=== PATIENT | female | born 1990 | race Native Hawaiian/Other Pacific Islander ===

== ENCOUNTER 2016-12-30 09:21 | Inpatient (IN) | payer BC, MEDICAID ==
[2016-12-30 09:32] VITALS: BMI 26.4
[2016-12-30] MEDS ORDERED: Sodium Chloride 0.9% 1,000 ML IV STA ×2 (09:48→13:14)
--- NOTE | 2016-12-30 10:00 | ED PDOC ---
HPI: Psych/Substance Abuse Time Seen by Provider: 12/30/16 09:26 Chief Complaint (Nursing): Psychiatric Evaluation Chief Complaint (Provider): psychiatric evaluation History Per: Patient History/Exam Limitations: no limitations Onset/Duration Of Symptoms: Hrs (x 2) Additional Complaint(s): Katrin Barrios is a 26 year old female, with a recent diagnosis of bipolar disorder, who presents to the ED accompanied by her mother for evaluation after a suicidal attempt 2 hours prior to arrival. Patient reports taking 15-20 sleeping pills at 08:00 and reports feeling sleepy. She denies any medical complaints or homicidal ideation. Recent Medications: Prozac, Vistral, Klonopin and bupropion xl PMD: Dr. Aguero Past Medical History Reviewed: Historical Data, Nursing Documentation, Vital Signs Vital Signs: Last Vital Signs Temp 98.2 F 12/30/16 09:31 Pulse 121 H 12/30/16 09:31 Resp 16 12/30/16 09:31 BP 139/107 H 12/30/16 09:31 Pulse Ox 99 12/30/16 09:31 - Medical History PMH: Anxiety, Bipolar Disorder, Depression Denies: Diabetes, Hepatitis, HIV, HTN, Seizures, Sexually Transmitted Disease - Family History Family History: States: Unknown Family Hx - Immunization History Hx Tetanus Toxoid Vaccination: Yes - Allergies Allergies/Adverse Reactions: Allergies Allergy/AdvReac Type Severity Reaction Status Date / Time latex Allergy RASH Verified 06/18/16 13:15 Latex, Natural Rubber Allergy RASH Verified 06/18/16 13:15 Review of Systems ROS Statement: Except As Marked, All Systems Reviewed And Found Negative Constitutional: Positive for: Other (sleepy) Psych: Positive for: Suicidal ideation. Negative for: Other (homicidal ideation ) Physical Exam - Reviewed Nursing Documentation Reviewed: Yes Vital Signs Reviewed: Yes - Physical Exam Appears: Positive for: Non-toxic, No Acute Distress (appears tearful ) Head Exam: Positive for: ATRAUMATIC, NORMAL INSPECTION, NORMOCEPHALIC Skin: Positive for: Normal Color, Warm, DRY Eye Exam: Positive for: EOMI, Normal appearance, PERRL ENT: Positive for: Normal ENT Inspection Neck: Positive for: Normal, Painless ROM Cardiovascular/Chest: Positive for: Regular Rate, Rhythm Respiratory: Positive for: CNT, Normal Breath Sounds Gastrointestinal/Abdominal: Positive for: Normal Exam, Bowel Sounds, Soft Back: Positive for: Normal Inspection Extremity: Positive for: Normal ROM Neurologic/Psych: Positive for: Alert, Oriented - Laboratory Results Result Diagrams: 12/30/16 09:55 12/30/16 09:55 - ECG O2 Sat by Pulse Oximetry: 99 (RA) Pulse Ox Interpretation: Normal - Physician Consult Information Physician Contacted: Manuel Sanches Outcome Of Conversation: Admit to ICU. - Critical Care Total Time (In Min): 30 Medical Decision Making Medical Decision Making: Initial Plan: * EKG * acetaminophen * alcohol serum * labs * urine drug screen * salicylate * urine dipstick * urine * CXR * IV NS 1,000 ml at 1,000 ml/hr * 1:1 observation * urinalysis * reevaluation 10:05 Case discussed with Kota @ Poison Control, charcoal could be considered but caution for risk of vomiting, aspiration. Watch for anticholinergic effects, hallucinations, seizures. Can administer IVF, BZD for agitation or toxicity, EKG, load with Acetadote. Scribe Attestation: Documented by Jodi Flynn, acting as a scribe for Jodi Dennis MD. Provider Scribe Attestation: All medical record entries made by the Scribe were at my direction and personally dictated by me. I have reviewed the chart and agree that the record accurately reflects my personal performance of the history, physical exam, medical decision making, and the department course for this patient. I have also personally directed, reviewed, and agree with the discharge instructions and disposition. ED OBSERVATION Date of observation admission: 12/30/16 Time of observation admission: 11:00 - Observation admission statement Patient is being placed in observation because:: will be receiving repeat blood work Disposition - Clinical Impression Clinical Impression: Tylenol overdose, Diphenhydramine overdose - Patient ED Disposition Is Patient to be Admitted: Yes - Disposition Disposition Time: 13:49 Condition: GUARDED - Pt Status Changed To: Hospital Disposition Of: Inpatient - Admit Certification Admit to Inpatient:: After my assessment, the patient will require hospitalization for at least two midnights. This is because of the severity of symptoms shown, intensity of services needed, and/or the medical risk in this patient being treated as an outpatient. - POA Present On Arrival: None
[2016-12-30] MEDS ORDERED: ACETYLCYSTEINE IVPB STA ×3 (10:06→13:50)
[2016-12-30] MEDS ORDERED: DEXTROSE 5% IVPB STA ×3 (10:06→13:50)
[2016-12-30] MEDS ORDERED: WATER IVPB STA ×3 (10:06→13:50)
[2016-12-30 10:14] LABS: BASO % 0.8 % (0.0-2.0); EOS # 0.1 K/uL (0.0-0.7); HEMATOCRIT 41.3 % (34.0-47.0); LYMPH # 1.6 K/uL (1.0-4.3); LYMPH % 39.2 % (20.0-40.0); MEAN CORPUSCULAR HEMOGLOBIN 29.7 pg (27.0-31.0); MEAN CORPUSCULAR HGB CONC 33.3 g/dL (33.0-37.0); MEAN PLATELET VOLUME 7.8 fl (7.2-11.7); MONO # 0.4 K/uL (0.0-0.8); MONO % 10.2 % (0.0-10.0); NEUT # 1.9 K/uL (1.8-7.0); NEUT % 46.8 % (50.0-75.0); NRBC % 0.1 % (0.0-0.0); RED CELL DISTRIBUTION WIDTH 13.4 % (11.5-14.5); WHITE BLOOD COUNT 4.1 K/uL (4.8-10.8)
[2016-12-30 10:21] LABS: RBC URINE 4 /hpf (0-3); URINE BILIRUBIN NEGATIVE (NEGATIVE); URINE BLOOD NEGATIVE (NEGATIVE); URINE COLOR YELLOW (YELLOW); URINE GLUCOSE (UA) NEG (Normal); URINE KETONE NEGATIVE (NEGATIVE); URINE LEUKOCYTE ESTERASE NEG Leu/uL (Negative); URINE PROTEIN 30 mg/dL (NEGATIVE); URINE UROBILINOGEN 0.2-1.0 mg/dL (0.2-1.0); WBC URINE 2 /hpf (0-5)
[2016-12-30 10:34] LABS: ALB/GLOB RATIO 1.5 (1.0-2.1); ALCOHOL SERUM < 10 mg/dl (0-10); ALKALINE PHOSPHATASE 62 U/L (38-126); ALT/SGPT 34 U/L (9-52); AST/SGOT 28 U/L (14-36); BILIRUBIN,TOTAL 0.5 mg/dl (0.2-1.3); BLOOD UREA NITROGEN 8 mg/dl (7-17); CALCIUM 9.3 mg/dL (8.4-10.2); CARBON DIOXIDE 20 mmol/L (22-30); CHLORIDE 105 mmol/L (98-107); GFR AFRICAN-AMERICAN > 60; GLUCOSE,RANDOM 93 mg/dL (65-105); POTASSIUM 4.6 MMOL/L (3.6-5.0); SODIUM 137 mmol/l (132-148)
[2016-12-30 10:42] LABS: PARTIAL THROMBOPLASTIN TIME 36.9 Seconds (25.6-37.1)
--- NOTE | 2016-12-30 12:26 | RAD ---
PROCEDURE: CHEST RADIOGRAPH, 1 VIEW HISTORY: OD COMPARISON: None available. FINDINGS: LUNGS: Clear. PLEURA: No pneumothorax or pleural fluid seen. CARDIOVASCULAR: Normal. OSSEOUS STRUCTURES: No significant abnormalities. VISUALIZED UPPER ABDOMEN: Normal. OTHER FINDINGS: None. IMPRESSION: No active disease.
--- NOTE | 2016-12-30 14:00 | CP.PCM.HP ---
History of Present Illness - History of Present Illness History of Present Illness: 26 yr old F with PMHx including Bipolar depression, Panic disorder and substance abuse (cannabis) brought in to ER by her mother with complaint of suicide attempt with ingestion of 15-20 pills (Acetaminophen 500mg/ Diphenydramine 25mg) at 8am this morning. Denies ingestion of alcohol. Last ingestion of cannabis was last night. Patient reports she feels tired and had palpitations. Denies nausea, vomiting, chest pain, weakness or dizziness. Patient reports she took the pills at 8am this morning because she woke up and "felt like shit, I didn't feel good at all, I just wanted to , I wished I was "; "I've always been a depressed person and I am tired of dealing with it, I contemplated cutting myself or jumping out the window but decided to take many pills and go to bed instead. I am overwhelmed at work and have gained weight on my medication, it has been addressed with changes in medication but now I am depressed about my weight as well". After ingesting the pills, patient told her mom to bring her to the hospital because she was feeling palpitations and was scared she was going to have a heart attack. States stopped taking her Zyprexa 3 weeks ago, took 1 tab last night because her mother begged her to. At this time denies suicidal or homicidal ideation, denies visual or audio hallucinations. [place] some nausea and 1 episode of no bilious/non bloody emesis after treatment started in ER, this has now subsided. PMD: Dr. Barrera at [facility] (last clinic visit 06/30/16) Mental Health : Chel Magaña A.P.N. -psych nurse at [facility] ( last visit 12/13/16) Behavior Health Specialist: Libby Marie at [facility] (last visit 12/28/16) LMP: 12/19/16 ObGyn: (had TOP), sexually active with 1 male partner only (does not use birthcontrol or protection) PMHx: Bipolar depression, Panic disorder and substance abuse: cannabis (last time yesterday) and Etoh (last time in November) FMHx: unknown, patient is adopted SurgHx: left sinus procedure SocHx: smokes 1-2 cigarettes a day (has 9 pack yr smoking hx) , uses cannabis daily, denies other drugs, quit Etoh 1 month ago, lives with parents (feels safe and supported at home); 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 (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 but likes 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 job); reports good relationship with fiance of 11 yrs; denies emotional or physical abuse Meds: Prozac 20mg PO QHS, Zyprexa 7.5mg PO QHS, Wellbutrin XL 150mg PO QD, Klonopin 0.25mg PO Q12 PRN anxiety ED Course: placed on a 1:1 -EKG: sinus tachycardia -CXR: no active disease -VS: BP 139/107 mmHg, HR 121, RR 16, Temp 98.2 F, O2 sat 99% on room air - CBC wnl, CMP wnl , coags wnl, UA neg -Acetaminophen level: 91 -Utox: + Cannabinoids -ED tx: 2L NS bolus, loading dose N-acetylcysteine 8,030mg over 1hr, 2nd dose N- acetycysteine 2,680mg over 4 hrs, Pepcid 20mg IV once, Zofran 4mg IV x 2 Present on Admission - Present on Admission Any Indicators Present on Admission: No History of DVT/PE: No History of Uncontrolled Diabetes: No Urinary Catheter: No Decubitus Ulcer Present: No Review of Systems - Review of Systems All systems: reviewed and no additional remarkable complaints except (except for what is mentioned in the HPI) Past Patient History - Infectious Disease Hx of Infectious Diseases: None - Past Social History Smoking Status: Light Smoker < 10 Cigarettes Daily - CARDIAC Hx Hypertension: No - PULMONARY Hx Tuberculosis: No - NEUROLOGICAL Hx Seizures: No - HEMATOLOGICAL/ONCOLOGICAL Hx Human Immunodeficiency Virus (HIV): No - GENITOURINARY/GYNECOLOGICAL Hx Sexually Transmitted Disorders: No - PSYCHIATRIC Hx Anxiety: Yes Hx Bipolar Disorder: Yes Hx Depression: Yes - SURGICAL HISTORY Hx Surgeries: No - ANESTHESIA Hx Anesthesia: No Meds Allergies/Adverse Reactions: Allergies Allergy/AdvReac Type Severity Reaction Status Date / Time latex Allergy RASH Verified 06/18/16 13:15 Latex, Natural Rubber Allergy RASH Verified 12/30/16 14:18 Physical Exam - Constitutional Appears: Non-toxic, No Acute Distress - Head Exam Head Exam: ATRAUMATIC, NORMOCEPHALIC - Eye Exam Eye Exam: EOMI (mild upper and lower eyelid swelling bilaterally), PERRL - ENT Exam ENT Exam: Mucous Membranes Moist - Neck Exam Neck exam: Positive for: Full Rom. Negative for: Lymphadenopathy - Respiratory Exam Respiratory Exam: Clear to Auscultation Bilateral, NORMAL BREATHING PATTERN - Cardiovascular Exam Cardiovascular Exam: REGULAR RHYTHM, +S1, +S2 - GI/Abdominal Exam GI & Abdominal Exam: Normal Bowel Sounds, Soft (obese) - Extremities Exam Extremities exam: Positive for: full ROM. Negative for: calf tenderness, pedal edema - Back Exam Back exam: absent: CVA tenderness (L), CVA tenderness (R) - Neurological Exam Neurological exam: Alert, CN II-XII Intact, Oriented x3 - Psychiatric Exam Psychiatric exam: Depressed, Flat Affect - Skin Skin Exam: Dry, Intact, Normal Color, Warm Results - Vital Signs Recent Vital Signs: Last Vital Signs Temp 98.3 F 12/30/16 13:20 Pulse 97 H 12/30/16 13:20 Resp 15 12/30/16 13:20 BP 138/94 H 12/30/16 13:36 Pulse Ox 99 12/30/16 13:50 - Labs Result Diagrams: 12/30/16 09:55 12/30/16 09:55 Assessment & Plan - Assessment and Plan (Free Text) Assessment: 26 yr old F admitted for Acetaminophen toxicity and Diphenhydramine toxicity s/ p suicidal attempt. Patient has PMHx including Bipolar depression, Panic disorder and substance abuse (cannabis). In ED patient received initial and 2nd dose of N-acteylcysteine. Admitted to ICU for further management. Acetaminophen Toxicity/Diphenhydramine Toxicity -acute, improving -Acetaminophen level 91>22 -initial and 2nd dose of N-acteylcysteine in ED -Admit to ICU for further management and 3rd dose N-acetylcysteine -f/u labs and acetaminophen level in AM -psych consult appreciated : Dr. Alvarez -chris Q2 Suicide Attempt -patient on 1:1 -PMHx Bipolar Disorder/Depression/Panic disorder -denies SI/HI at the moment -resume home meds: Prozac 20mg PO QHS, Zyprexa 7.5mg PO QHS, Wellbutrin XL 150mg PO QD (NF, mom will bring in), Klonopin 0.25mg PO Q12 PRN anxiety -psych consult appreciated : Dr. Alvarez Substance abuse (Cannabis) -patient counseled on abstaining from cannabis use DVT/GI prophylaxis -Lovenox 40 mg SC QD -Famotidine 20mg PO QD - Date & Time Date: 12/31/16 Time: 14:15
[2016-12-30] MEDS ORDERED: ACETYLCYSTEINE IVPB ONE (18:00)
[2016-12-30] MEDS ORDERED: WATER IVPB ONE (18:00)
[2016-12-30] MEDS ORDERED: DEXTROSE 5% IVPB ONE (18:00)
--- NOTE | 2016-12-31 05:34 | CON ---
DATE: 12/30/2016 SUBJECTIVE: The patient in ICU bed. The patient is seen and examined at the bedside. This is a 26-year-old female, adopted by parents, who lives with her. The patient has history of anxiety, depression and bipolar disorder, has been on mood stabilizing medications. Reportedly, the patient has not been taking these medications for about a week. Reports that the patient has been on Prozac, Vistaril, Klonopin and Wellbutrin XL 150 mg once daily. Reportedly, she was not feeling well this morning and took 15 to 20 tablets to help her relax and sleep. As the patient was not feeling well, the patient was brought to emergency room by parents. In ER, the patient's vital signs were temperature 98.2, heart rate of 121, respiratory rate 16, oxygen saturation 99% on room air, blood pressure 139/107. She was noted to be alert and awake. She was able to follow commands appropriately. The patient denied any medical complaints or homicidal ideation. Lab examination was otherwise unremarkable. Chest x-ray showed no acute infiltrate as the Tylenol level was not elevated. Poison control was contacted and recommended to start on antidote. The patient is admitted to ICU for further observation and treatment of acetaminophen toxicity. REVIEW OF SYSTEMS: No fever, chills, cough, shortness of breath, chest pain, abdominal pain or diarrhea or dysuria. PAST MEDICAL HISTORY: Otherwise unremarkable. SURGICAL HISTORY: Negative. MEDICATIONS: Reviewed. ALLERGY: ALLERGIC TO LATEX AND WELL RUBBER. PHYSICAL EXAMINATION GENERAL: Young, well-built female, oriented to name, place and time, in no distress. VITAL SIGNS: Temperature is 98.3, heart rate 99, blood pressure 143/94, respiratory rate 18, oxygen saturation 100% on room air. Weight 118 pounds. HEENT: Examination of head, eyes, ears, nose and throat; pupils are reactive. Conjunctivae are pink. Sclerae are white. NECK: Supple. Trachea is center. CHEST: Bilateral breath sounds. Clear to auscultation. HEART: Rhythm regular. S1 and S2, normal intensity. No S3 or S4 gallop. No audible murmur. ABDOMEN: Bowel sounds present and soft. Liver and spleen are palpable. Bladder is not distended. EXTREMITIES: No clubbing, cyanosis or edema. No aberrations are noted. NEURO EXAMINATION: No cranial nerve deficit. No sensory or motor impairment. [place] coma scale equal to 15. LABORATORY DATA: As noted, toxicology screen, acetaminophen 91. Urine cannabinoid screen positive. Alcohol level less than 10. SMA-7; sodium 137, potassium 4.6, chloride 105, CO2 of 20, anion gap 17, blood urea nitrogen 8, AST 28, ALT 34, alkaline phosphatase 62, total protein 8, albumin 4.8. WBC 4.1, hemoglobin 13.8, hematocrit 41.3, platelet count 287, neutrophils 46.8, lymphocytes 39.2, monocytes 10.2. Chest x-ray, no acute infiltrate noted. IMPRESSION: 1. This is a 26-year-old female with history of bipolar disorder/anxiety, depression, admitted with intentional drug overdose, elevated acetaminophen level, on acetylcysteine at 125 mL per hour. 2. Anxiety, depression and bipolar disorder, to follow by psychiatrist. Continue DVT and GI prophylaxis. One-to-one observation. Keep head off bed 30 degrees up. Once the patient has no GI upset, we will start with regular diet as tolerated. Manuel Sanches MD
[2016-12-31 07:11] LABS: HEMATOCRIT 36.4 % (34.0-47.0); MEAN CELL VOLUME 89.2 fl (81.0-99.0); MEAN CORPUSCULAR HEMOGLOBIN 29.9 pg (27.0-31.0); MEAN CORPUSCULAR HGB CONC 33.6 g/dL (33.0-37.0); RED CELL DISTRIBUTION WIDTH 13.3 % (11.5-14.5); WHITE BLOOD COUNT 4.7 K/uL (4.8-10.8)
[2016-12-31 07:16] LABS: ALB/GLOB RATIO 1.4 (1.0-2.1); ALKALINE PHOSPHATASE 43 U/L (38-126); ALT/SGPT 29 U/L (9-52); AST/SGOT 24 U/L (14-36); BILIRUBIN,TOTAL 0.4 mg/dl (0.2-1.3); BLOOD UREA NITROGEN 5 mg/dl (7-17); CALCIUM 8.8 mg/dL (8.4-10.2); CARBON DIOXIDE 26 mmol/L (22-30); CHLORIDE 108 mmol/L (98-107); GFR AFRICAN-AMERICAN > 60; GLUCOSE,RANDOM 93 mg/dL (65-105); POTASSIUM 4.3 MMOL/L (3.6-5.0); SODIUM 140 mmol/l (132-148); TOTAL PROTEIN 6.6 G/DL (6.3-8.2)
[2016-12-31 08:32] LABS: PARTIAL THROMBOPLASTIN TIME 35.9 Seconds (25.6-37.1)
[2016-12-31] MEDS: Enoxaparin 40 mg Syringe SC SCH (08:52)
[2016-12-31] MEDS: Famotidine 40 MG/5 ML PO SCH (09:47)
--- NOTE | 2016-12-31 12:30 | CP.PCM.PN ---
Subjective - Date & Time of Evaluation Date of Evaluation: 12/31/16 Time of Evaluation: 09:40 - Subjective Subjective: Pt seen and examined at bedside, denies any palpitations today, sob, chest pain , states medically she feels ok. but still feels depressed but now regrets her suicide attempt. and currently denies wanting to kill herself. Objective - Vital Signs/Intake and Output Vital Signs (last 24 hours): Temp Pulse Resp BP Pulse Ox 98.4 F 88 15 114/72 100 12/31/16 08:00 12/31/16 08:00 12/31/16 08:00 12/31/16 08:00 12/31/16 08:00 Intake and Output: 12/31/16 12/31/16 06:59 18:59 Intake Total 700 125 Output Total 400 Balance 300 125 - Medications Medications: Current Medications Clonazepam (Klonopin) 0.25 mg PO Q12 PRN PRN Reason: Anxiety Enoxaparin Sodium (Lovenox) 40 mg SC DAILY [facility] PRN Reason: Protocol Last Admin: 12/31/16 08:52 Dose: 40 mg Famotidine (Pepcid) 20 mg PO DAILY [facility] Last Admin: 12/31/16 09:47 Dose: 20 mg Fluoxetine HCl (Prozac) 20 mg PO HS [facility] Last Admin: 12/30/16 22:01 Dose: 20 mg Home Med (Bupropion Xl [Wellbutrin Xl]) 150 mg PO DAILY [facility] Olanzapine (Zyprexa) 7.5 mg PO QPM [facility] Ondansetron HCl (Zofran Inj) 4 mg IVP Q6H PRN PRN Reason: Nausea/Vomiting - Labs Labs: 12/31/16 06:00 12/31/16 06:00 PT 13.0 Seconds (9.8-13.1) 12/31/16 06:00 INR 1.2 (0.9-1.2) 12/31/16 06:00 APTT 35.9 Seconds (25.6-37.1) 12/31/16 06:00 - Constitutional Appears: Non-toxic, No Acute Distress - Head Exam Head Exam: NORMOCEPHALIC - Eye Exam Eye Exam: EOMI, Normal appearance, PERRL Pupil Exam: NORMAL ACCOMODATION - ENT Exam ENT Exam: Mucous Membranes Moist - Respiratory Exam Respiratory Exam: Clear to Ausculation Bilateral, NORMAL BREATHING PATTERN. absent: Rhonchi, Wheezes - Cardiovascular Exam Cardiovascular Exam: REGULAR RHYTHM, +S1, +S2 - GI/Abdominal Exam GI & Abdominal Exam: Soft, Normal Bowel Sounds. absent: Tenderness - Extremities Exam Extremities Exam: absent: Calf Tenderness, Pedal Edema - Neurological Exam Neurological Exam: Alert, Awake, CN II-XII Intact, Oriented x3 - Psychiatric Exam Psychiatric exam: Depressed - Skin Skin Exam: Normal Color Assessment and Plan - Assessment and Plan (Free Text) Assessment: 26 yr old F admitted for Acetaminophen toxicity and Diphenhydramine toxicity s/ p suicidal attempt. Patient has PMHx including Bipolar depression, Panic disorder and substance abuse (cannabis). In ED patient received initial and 2nd dose of N-acteylcysteine. Admitted to ICU for further management. Intentional Acetaminophen overdose/Diphenhydramine overdose -Resolved -Acetaminophen level <10 -medically stable -psych consulted: Dr. Alvarez -downgraded from ICU to tele Suicide Attempt -patient on 1:1 -PMHx Bipolar Disorder/Depression/Panic disorder -denies SI/HI at the moment -resume home meds: Prozac 20mg PO QHS, Zyprexa 7.5mg PO QHS, Wellbutrin XL 150mg PO QD (NF, mom will bring in), Klonopin 0.25mg PO Q12 PRN anxiety -psych consulted : Dr. Alvarez ( awaiting recommendations) Substance abuse (Cannabis) -patient counseled on abstaining from cannabis use Diet Regular DVT/GI prophylaxis -Lovenox 40 mg SC QD -Famotidine 20mg PO QD
[2016-12-31 12:38] LABS: ALB/GLOB RATIO 1.4 (1.0-2.1); BILIRUBIN,TOTAL 0.4 mg/dl (0.2-1.3); TOTAL PROTEIN 6.4 G/DL (6.3-8.2)
--- NOTE | 2016-12-31 13:24 | CARD ---
APPROVED REPORT EKG Measurement Heart [id number] <Conclusion> Sinus tachycardia Possible Left atrial enlargement Borderline ECG
--- NOTE | 2016-12-31 16:10 | CP.PCM.CON ---
History of Present Illness - History of Present Illness History of Present Illness: This is a 26 year old female with h/o depression and bipolar disorder and psych consult requested because pt attempted suicide by overdosing on 15-20 sleeping pills and brought by family and admitted medically.pt is prescribed wellbutrin and prozac and klonopin and vistaril Past Patient History - Infectious Disease Hx of Infectious Diseases: None - Past Medical History & Family History Past Medical History?: No - Past Social History Smoking Status: Light Smoker < 10 Cigarettes Daily - CARDIAC Hx Hypertension: No - PULMONARY Hx Tuberculosis: No - NEUROLOGICAL Hx Seizures: No - HEENT Hx HEENT Problems: No - RENAL Hx Chronic Kidney Disease: No - ENDOCRINE/METABOLIC Hx Endocrine Disorders: No - HEMATOLOGICAL/ONCOLOGICAL Hx Human Immunodeficiency Virus (HIV): No - INTEGUMENTARY Hx Dermatological Problems: No - MUSCULOSKELETAL/RHEUMATOLOGICAL Hx Falls: No - GENITOURINARY/GYNECOLOGICAL Hx Sexually Transmitted Disorders: No - PSYCHIATRIC Hx Anxiety: Yes Hx Bipolar Disorder: Yes Hx Depression: Yes - SURGICAL HISTORY Hx Surgeries: No - ANESTHESIA Hx Anesthesia: No Meds Allergies/Adverse Reactions: Allergies Allergy/AdvReac Type Severity Reaction Status Date / Time latex Allergy RASH Verified 06/18/16 13:15 Latex, Natural Rubber Allergy RASH Verified 12/30/16 14:18 - Medications Medications: Current Medications Clonazepam (Klonopin) 0.25 mg PO Q12 PRN PRN Reason: Anxiety Enoxaparin Sodium (Lovenox) 40 mg SC DAILY [facility] PRN Reason: Protocol Last Admin: 12/31/16 08:52 Dose: 40 mg Famotidine (Pepcid) 20 mg PO DAILY [facility] Last Admin: 12/31/16 09:47 Dose: 20 mg Fluoxetine HCl (Prozac) 20 mg PO HS [facility] Last Admin: 12/30/16 22:01 Dose: 20 mg Home Med (Bupropion Xl [Wellbutrin Xl]) 300 mg PO DAILY [facility] Olanzapine (Zyprexa) 7.5 mg PO QPM [facility] Ondansetron HCl (Zofran Inj) 4 mg IVP Q6H PRN PRN Reason: Nausea/Vomiting Physical Exam - Psychiatric Exam Psychiatric exam: Depressed, Flat Affect, Suicidal Ideation Results - Vital Signs Recent Vital Signs: Last Vital Signs Temp 98.5 F 12/31/16 12:00 Pulse 74 12/31/16 14:00 Resp 16 12/31/16 14:00 BP 121/69 12/31/16 14:00 Pulse Ox 100 12/31/16 14:00 - Labs Result Diagrams: 12/31/16 06:00 12/31/16 06:00 Labs: Laboratory Results - last 24 hr 12/31/16 12/31/16 12/31/16 06:00 06:00 06:00 WBC 4.7 L RBC 4.08 Hgb 12.2 Hct 36.4 MCV 89.2 MCH 29.9 MCHC 33.6 RDW 13.3 Plt Count 237 PT 13.0 INR 1.2 APTT 35.9 Sodium 140 Potassium 4.3 Chloride 108 H Carbon Dioxide 26 Anion Gap 10 BUN 5 L Creatinine 0.7 Est GFR ( Amer) > 60 Est GFR (Non-Af Amer) > 60 Random Glucose 93 Calcium 8.8 Total Bilirubin 0.4 Direct Bilirubin AST 24 ALT 29 Alkaline Phosphatase 43 Total Protein 6.6 Albumin 3.8 Globulin 2.7 Albumin/Globulin Ratio 1.4 Acetaminophen 12/31/16 12/31/16 06:00 12:20 WBC RBC Hgb Hct MCV MCH MCHC RDW Plt Count PT INR APTT Sodium Potassium Chloride Carbon Dioxide Anion Gap BUN Creatinine Est GFR ( Amer) Est GFR (Non-Af Amer) Random Glucose Calcium Total Bilirubin 0.4 Direct Bilirubin 0.3 AST 26 ALT 33 Alkaline Phosphatase 46 Total Protein 6.4 Albumin 3.7 Globulin 2.7 Albumin/Globulin Ratio 1.4 Acetaminophen < 10.0 L Assessment & Plan - Assessment and Plan (Free Text) Assessment: bipolar disorder i ,depressed plan ' 1;1 0bservation for safety Pt agreed for voluntary inpt psych admission and will betransferred to 3NP when medically cleared
--- NOTE | 2016-12-31 17:21 | PN ---
DATE: 12/31/2016 SUBJECTIVE: The patient is seen, evaluated at the bedside. Events since admission reviewed. A 26-year-old female with bipolar disorder and substance abuse, admitted with intentional overdose on medications, status post acetylcysteine completed. Repeat Tylenol level less than 10. Overnight uneventful, normotensive, afebrile, reportedly slept mild well. This morning alert, and awake, follows commands appropriate. Denies some headache. No shortness of breath, chest pain, palpitation. No abdominal discomfort. Tolerating p.o. feeds. PHYSICAL EXAMINATION VITAL SIGNS: Temperature 98.4, heart rate 88 and regular, blood pressure 114/72, respiratory rate 15, oxygen saturation 100% on room air. Intake 1125 and output 400. Positive balance 725. Weight 118 pounds. HEAD, EYES, EARS, NOSE, AND THROAT: Pupils reactive, conjunctiva pink. Sclerae white. NECK: Supple. Trachea is center. CHEST: Bilateral breath sounds. Clear to auscultation. HEART: Rhythm regular. S1 and S2 normal intensity. No S3 or S4 gallop. No audible murmur. ABDOMEN: Bowel sounds present and soft. Liver and spleen are palpable. Bladder is not distended. EXTREMITIES: No clubbing, cyanosis or edema. NEURO EXAMINATION: Alert, oriented x3. No cranial nerve deficit. No motor deficit. No sensory impairment. Deep tender reflex are normal. LABORATORY DATA: WBC 4.7, hemoglobin 12.2, hematocrit 36.4, platelet count of 237. PT 13, INR 1.2. SMA-7; sodium 140, potassium 4.3, chloride 108, CO2 of 26. blood urine nitrogen 5. Creatinine 0.7, random glucose 93, calcium 8.8, total bilirubin 0.4, AST 24, ALT 29, alkaline phosphatase 43, total protein 6.6, albumin 3.8. BUN analysis negative. Toxicology screen positive for cannabinoids. Tylenol level less than 10. IMPRESSION: 1. NEURO: Alert, oriented to name, place and time. No sign of withdrawal symptoms noted. 2. Pulmonary, no further issues. 3. Cardiac normotensive in telemetry sinus rhythm. 4. Gastrointestinal, normal LFTs. 5. Status post drug overdose, completed a course of n-acetylcysteine. 6. Renal, adequate urine output. 7. History of bipolar disorder, depression and panic disorder, on Prozac, Zyprexa, Wellbutrin at home and Klonopin. Psycho consult followup. The patient continue one-to-one observation and DVT, GI prophylaxis. Clinically stable to step-down unit. Manuel Sanches MD
[2017-01-01] MEDS: Famotidine 40 MG/5 ML PO SCH (09:22)
[2017-01-01] MEDS: Enoxaparin 40 mg Syringe SC SCH (09:22)
--- NOTE | 2017-01-01 11:18 | CP.PCM.DIS ---
Provider - Provider Date of Admission: 12/30/16 20:22 Attending physician: Kim Cazares MD Consults: Dr. Alvarez-psychiatry Time Spent in preparation of Discharge (in minutes): 30 Diagnosis - Discharge Diagnosis (1) Suicide attempt by acetaminophen overdose Status: Resolved Priority: Low (2) Diphenhydramine overdose Status: Resolved Priority: Low (3) Bipolar 1 disorder, depressed, severe Status: Chronic Priority: High (4) Panic disorder Status: Chronic Priority: Medium (5) Substance abuse Status: Chronic Priority: Low Comment: cannabinoid abuse, counseled on abstinence Hospital Course - Lab Results Lab Results: Most Recent Lab Values WBC 4.7 K/uL (4.8-10.8) L 12/31/16 06:00 RBC 4.08 Mil/uL (3.80-5.20) 12/31/16 06:00 Hgb 12.2 g/dL (12.0-16.0) 12/31/16 06:00 Hct 36.4 % (34.0-47.0) 12/31/16 06:00 MCV 89.2 fl (81.0-99.0) 12/31/16 06:00 MCH 29.9 pg (27.0-31.0) 12/31/16 06:00 MCHC 33.6 g/dL (33.0-37.0) 12/31/16 06:00 RDW 13.3 % (11.5-14.5) 12/31/16 06:00 Plt Count 237 K/uL (130-400) 12/31/16 06:00 MPV 7.8 fl (7.2-11.7) 12/30/16 09:55 Neut % (Auto) 46.8 % (50.0-75.0) L 12/30/16 09:55 Lymph % (Auto) 39.2 % (20.0-40.0) 12/30/16 09:55 [place] % (Auto) 10.2 % (0.0-10.0) H 12/30/16 09:55 Eos % (Auto) 3.0 % (0.0-4.0) 12/30/16 09:55 Baso % (Auto) 0.8 % (0.0-2.0) 12/30/16 09:55 Neut # 1.9 K/uL (1.8-7.0) 12/30/16 09:55 Lymph # 1.6 K/uL (1.0-4.3) 12/30/16 09:55 [place] # 0.4 K/uL (0.0-0.8) 12/30/16 09:55 Eos # 0.1 K/uL (0.0-0.7) 12/30/16 09:55 Baso # 0.0 K/uL (0.0-0.2) 12/30/16 09:55 PT 13.0 Seconds (9.8-13.1) 12/31/16 06:00 INR 1.2 (0.9-1.2) 12/31/16 06:00 APTT 35.9 Seconds (25.6-37.1) 12/31/16 06:00 Sodium 140 mmol/l (132-148) 12/31/16 06:00 Potassium 4.3 MMOL/L (3.6-5.0) 12/31/16 06:00 Chloride 108 mmol/L (98-107) H 12/31/16 06:00 Carbon Dioxide 26 mmol/L (22-30) 12/31/16 06:00 Anion Gap 10 (10-20) 12/31/16 06:00 BUN 5 mg/dl (7-17) L 12/31/16 06:00 Creatinine 0.7 mg/dL (0.7-1.2) 12/31/16 06:00 Est GFR ( Amer) > 60 12/31/16 06:00 Est GFR (Non-Af Amer) > 60 12/31/16 06:00 Random Glucose 93 mg/dL (65-105) 12/31/16 06:00 Calcium 8.8 mg/dL (8.4-10.2) 12/31/16 06:00 Total Bilirubin 0.4 mg/dl (0.2-1.3) 12/31/16 12:20 Direct Bilirubin 0.3 mg/ml (0.0-0.4) 12/31/16 12:20 AST 26 U/L (14-36) 12/31/16 12:20 ALT 33 U/L (9-52) 12/31/16 12:20 Alkaline Phosphatase 46 U/L (38-126) 12/31/16 12:20 Total Protein 6.4 G/DL (6.3-8.2) 12/31/16 12:20 Albumin 3.7 g/dL (3.5-5.0) 12/31/16 12:20 Globulin 2.7 gm/dL (2.2-3.9) 12/31/16 12:20 Albumin/Globulin Ratio 1.4 (1.0-2.1) 12/31/16 12:20 Urine Color Yellow (YELLOW) 12/30/16 09:55 Urine Clarity Cloudy (Clear) 12/30/16 09:55 Urine pH 6.0 (5.0-8.0) 12/30/16 09:55 Ur Specific [place] 1.044 (1.003-1.030) H 12/30/16 09:55 Urine Protein 30 mg/dL (NEGATIVE) 12/30/16 09:55 Urine Glucose (UA) Neg mg/dL (Normal) 12/30/16 09:55 Urine Ketones Negative mg/dL (NEGATIVE) 12/30/16 09:55 Urine Blood Negative (NEGATIVE) 12/30/16 09:55 Urine Nitrate Negative (NEGATIVE) 12/30/16 09:55 Urine Bilirubin Negative (NEGATIVE) 12/30/16 09:55 Urine Urobilinogen 0.2-1.0 mg/dL (0.2-1.0) 12/30/16 09:55 Ur Leukocyte Esterase Neg Zee/uL (Negative) 12/30/16 09:55 Urine RBC (Auto) 4 /hpf (0-3) H 12/30/16 09:55 Urine Microscopic WBC 2 /hpf (0-5) 12/30/16 09:55 Ur Squamous Epith Cells 29 /hpf (0-5) H 12/30/16 09:55 Salicylates < 1.0 mg/dl 12/30/16 09:55 Urine Opiates Screen Negative (NEGATIVE) 12/30/16 09:55 Urine Methadone Screen Negative (NEGATIVE) 12/30/16 09:55 Acetaminophen < 10.0 ug/ml (10.0-30.0) L 12/31/16 06:00 Ur Barbiturates Screen Negative (NEGATIVE) 12/30/16 09:55 Ur Phencyclidine Scrn Negative (NEGATIVE) 12/30/16 09:55 Ur Amphetamines Screen Negative (NEGATIVE) 12/30/16 09:55 U Benzodiazepines Scrn Negative (NEGATIVE) 12/30/16 09:55 U Oth Cocaine Metabols Negative (NEGATIVE) 12/30/16 09:55 U Cannabinoids Screen Positive (NEGATIVE) H 12/30/16 09:55 Alcohol, Quantitative < 10 mg/dl (0-10) 12/30/16 09:55 - Hospital Course Hospital Course: 26 yr old F with PMHx including Bipolar depression with intermittent suicidal ideation, Panic disorder and substance abuse (cannabis) admitted for Acetaminophen and Diphenhydramine toxicity s/p suicidal attempt. Patient was treated with IV fluids and medication, symptoms resolved, serum levels of acetaminophen normalized. Patient is stable from the medical standpoint and was discharged to psych for further management. - Date & Time of H&P Date of H&P: 12/30/16 Time of H&P: 14:00 Discharge Exam - Head Exam Head Exam: ATRAUMATIC, NORMOCEPHALIC - Eye Exam Eye Exam: EOMI, PERRL - ENT Exam ENT Exam: Mucous Membranes Moist - Neck Exam Neck exam: Full Rom - Respiratory Exam Respiratory Exam: NORMAL BREATHING PATTERN - Cardiovascular Exam Cardiovascular Exam: REGULAR RHYTHM, +S1, +S2 - GI/Abdominal Exam GI & Abdominal Exam: Normal Bowel Sounds, Soft. absent: Tenderness - Extremities Exam Extremities exam: full ROM - Back Exam Back exam: absent: CVA tenderness (L), CVA tenderness (R) - Neurological Exam Neurological exam: Alert, CN II-XII Intact, Oriented x3 - Psychiatric Exam Psychiatric exam: Depressed, Flat Affect - Skin Skin Exam: Dry, Intact, Warm Discharge Plan - Follow Up Plan Condition: GUARDED Disposition: DISCH TO PSYCH HOSP PLAN READ Patient education suggested?: Yes Instructions: Depression (DC), Suicide Prevention for Adults (DC), Anxiety (DC) Additional Instructions: -Resume your home medications as prescribed -When outpatient, follow up with Chel Magaña A.P.N. -psych nurse at [facility] -follow up Behavior Health Specialist: Libby Marie at [facility] -ER precautions reviewed Referrals: Saw Barrera MD [Family Provider] -
[2017-01-01] MEDS ORDERED: Pneumococcal 23-Valent Vaccine IM ONE (15:00)
[2017-01-01 17:30] VITALS: BP 116/72; PULSE 72; RESP 14; TEMP 98.5; O2SAT 98
== END 2017-01-01 18:05 | DRG 918 ==
LOC: H.ER 09:21 → H.EROBSV 11:00 → H.ERHOLD 13:52 → H.ICU/CCU 15:45 → OBSVTOIN 20:22
PROVIDERS: ADMIT Family Medicine; ATTEND Family Medicine
DX: T39.1X2A Poisoning by 4-Aminophenol derivatives, intentional self-harm, initial encounter (principal); F31.9 Bipolar disorder, unspecified; T45.0X2A Poisoning by antiallergic and antiemetic drugs, intentional self-harm, initial encounter; Y92.9 Unspecified place or not applicable; Z91.040 Latex allergy status; F41.9 Anxiety disorder, unspecified; F41.0 Panic disorder [episodic paroxysmal anxiety]; F12.10 Cannabis abuse, uncomplicated; F17.210 Nicotine dependence, cigarettes, uncomplicated

== ENCOUNTER 2017-01-01 17:41 | Inpatient (IN) | payer BC, MEDICAID ==
[2017-01-01] MEDS ORDERED: Alum-Mag Hydrox-Simethicone Susp (30 mL) PO PRN (18:27)
[2017-01-01] MEDS ORDERED: Magnesium Hydroxide Susp 30 ml UD PO PRN (18:27)
[2017-01-01] MEDS ORDERED: DiphenhydrAMINE 50 mg/ml Inj IM PRN (18:27)
[2017-01-02 08:11] LABS: T4 8.61 ug/dl (5.5-11.0)
--- NOTE | 2017-01-02 08:32 | CP.PCM.CON ---
History of Present Illness - History of Present Illness History of Present Illness: CC/HPI: Patient evaluated on Psych unit sleeping. She awakened by verbal cues. Pt. with no complaints at this time. ROS: Pt. denies any headache, chest pain, abdominal pain, Nausea, vomiting, diarreha, constipation, flank pain, back pain, hematuria, dysuria, or vaginal discharge. PMD: Dr. Barrera at [facility] (last clinic visit 06/30/16) Mental Health : Chel Magaña A.P.N. -psych nurse at [facility] ( last visit 12/13/16) Behavior Health Specialist: Libby Marie at [facility] (last visit 12/28/16) LMP: 12/19/16 ObGyn: (had TOP), sexually active with 1 male partner only (does not use birthcontrol or protection) PMHx: Bipolar depression, Panic disorder and substance abuse: cannabis (last time yesterday) and Etoh (last time in November) FMHx: unknown, patient is adopted SurgHx: left sinus procedure SocHx: smokes 1-2 cigarettes a day (has 9 pack yr smoking hx) , uses cannabis daily, denies other drugs, quit Etoh 1 month ago, lives with parents (feels safe and supported at home); 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 (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 but likes her job); reports good relationship with fiance of 11 yrs; denies emotional or physical abuse Meds: Prozac 20mg PO QHS, Zyprexa 7.5mg PO QHS, Wellbutrin XL 150mg PO QD, Klonopin 0.25mg PO Q12 PRN anxiety ED Course: placed on a 1:1 -EKG: sinus tachycardia -CXR: no active disease -VS: BP 139/107 mmHg, HR 121, RR 16, Temp 98.2 F, O2 sat 99% on room air - CBC wnl, CMP wnl , coags wnl, UA neg -Acetaminophen level: 91 -Utox: + Cannabinoids -ED tx: 2L NS bolus, loading dose N-acetylcysteine 8,030mg over 1hr, 2nd dose N- acetycysteine 2,680mg over 4 hrs, Pepcid 20mg IV once, Zofran 4mg IV x 2 Past Patient History - Infectious Disease Hx of Infectious Diseases: None - Past Medical History & Family History Past Medical History?: No - Past Social History Smoking Status: Light Smoker < 10 Cigarettes Daily - CARDIAC Hx Hypertension: No - PULMONARY Hx Tuberculosis: No - NEUROLOGICAL Hx Seizures: No - HEENT Hx HEENT Problems: No - RENAL Hx Chronic Kidney Disease: No - ENDOCRINE/METABOLIC Hx Endocrine Disorders: No - HEMATOLOGICAL/ONCOLOGICAL Hx Human Immunodeficiency Virus (HIV): No - INTEGUMENTARY Hx Dermatological Problems: No - MUSCULOSKELETAL/RHEUMATOLOGICAL Hx Falls: No - GENITOURINARY/GYNECOLOGICAL Hx Sexually Transmitted Disorders: No - PSYCHIATRIC Hx Substance Use: No - SURGICAL HISTORY Hx Surgeries: Yes Other/Comment: Sinus surgery 2013 - ANESTHESIA Hx Anesthesia: Yes Hx Anesthesia Reactions: No Hx Malignant Hyperthermia: No Has any member of the family had a problem w/ anesthesia?: No Meds Allergies/Adverse Reactions: Allergies Allergy/AdvReac Type Severity Reaction Status Date / Time latex Allergy RASH Verified 06/18/16 13:15 Latex, Natural Rubber Allergy RASH Verified 12/30/16 14:18 - Medications Medications: Current Medications Acetaminophen (Tylenol 325mg Tab) 650 mg PO Q4 PRN PRN Reason: Pain, moderate (4-7) Al Hydrox/Mg Hydrox/Simethicone (Maalox Plus 30 Ml) 30 ml PO Q4 PRN PRN Reason: Dyspepsia Diphenhydramine HCl (Benadryl) 50 mg IM Q6 PRN PRN Reason: Extrapyramidal S/S Unable PO Diphenhydramine HCl (Benadryl) 50 mg PO Q6 PRN PRN Reason: Extrapyramidal Symptoms Haloperidol (Haldol) 5 mg PO Q4 PRN PRN Reason: Agitation Haloperidol Lactate (Haldol) 5 mg IM Q4 PRN PRN Reason: Agitation, Unable to Take PO Lorazepam (Ativan) 2 mg IM Q4 PRN PRN Reason: Anxiety/Agitation,Unable PO Lorazepam (Ativan) 2 mg PO Q4 PRN PRN Reason: Anxiety/Agitation Magnesium Hydroxide (Milk Of Magnesia) 30 ml PO HS PRN PRN Reason: Constipation Physical Exam - Constitutional Appears: Non-toxic, No Acute Distress - Head Exam Head Exam: ATRAUMATIC, NORMOCEPHALIC - Eye Exam Eye Exam: EOMI, Normal appearance - ENT Exam ENT Exam: Mucous Membranes Moist - Neck Exam Neck exam: Positive for: Full Rom. Negative for: Thyromegaly - Respiratory Exam Respiratory Exam: Clear to Auscultation Bilateral, NORMAL BREATHING PATTERN - Cardiovascular Exam Cardiovascular Exam: REGULAR RHYTHM, +S1, +S2 - GI/Abdominal Exam GI & Abdominal Exam: Soft. absent: Tenderness - Extremities Exam Extremities exam: Positive for: pedal pulses present. Negative for: calf tenderness - Back Exam Back exam: absent: CVA tenderness (L), CVA tenderness (R) - Neurological Exam Neurological exam: Alert, CN II-XII Intact, Oriented x3 - Psychiatric Exam Psychiatric exam: Normal Affect, Normal Mood - Skin Skin Exam: Dry, Warm Results - Vital Signs Recent Vital Signs: Last Vital Signs Temp 98.4 F 01/01/17 19:30 Pulse 68 01/01/17 20:48 Resp 18 01/01/17 20:48 BP 133/75 01/01/17 19:30 Pulse Ox - Labs Labs: Laboratory Results - last 24 hr 01/02/17 07:00 Triglycerides 133 D Cholesterol 193 LDL Cholesterol Direct 127 HDL Cholesterol 46 Thyroxine (T4) 8.61 TSH 3rd Generation 1.65 Assessment & Plan - Assessment and Plan (Free Text) Assessment: 26 y.o. female with PMHx of Bipolar depression, anxiety, panic disorder, and cannabis abuse admitted for Suicide attempt via overdose of Acetaminophen and Diphehydramine medically stable for treatment of Depression and Suicide ideation. Suicide attempt/Depression 1- Recommendation as per Psych
--- NOTE | 2017-01-02 15:34 | PCM.PSYCH ---
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 she is presenting after a suicide attempt with tylenol pm and was hospitalized with elevated tylenol level. she is reporting that she has been very depressed. she felt hopeless and that she was a burden. she took the tylenol, but then quickly told her mother because she was afraid. she reports poor sleep, poor impulse control, anxiety, deep depression, low energy. she denies any psychotic symptoms. she does report she stopped taking her zyprexa about 3 weeks ago because of the weight gain. pt reports having some "ocd" symptoms and has history of picking at her skin and eyebrows as a teenager. she reports she gets panic attacks sometimes. pt reports she likes her current providers and wants help. she reports she is willing to try a medication change here. Current Medications: Active Medications Generic Name Dose Route Start Last Admin Trade Name Freq PRN Reason Stop Dose Admin Acetaminophen 650 mg 01/01/17 18:27 Tylenol 325mg Tab PO Q4 PRN Pain, moderate (4-7) Al Hydrox/Mg Hydrox/Simethicone 30 ml 01/01/17 18:27 Maalox Plus 30 Ml PO Q4 PRN Dyspepsia Diphenhydramine HCl 50 mg 01/01/17 18:27 Benadryl IM Q6 PRN Extrapyramidal S/S Unable PO Diphenhydramine HCl 50 mg 01/01/17 18:27 Benadryl PO Q6 PRN Extrapyramidal Symptoms Fluoxetine HCl 20 mg 01/03/17 09:00 Prozac PO DAILY CULLEN Haloperidol 5 mg 01/01/17 18:27 Haldol PO Q4 PRN Agitation Haloperidol Lactate 5 mg 01/01/17 18:27 Haldol IM Q4 PRN Agitation, Unable to Take PO [place] Carbonate 300 mg 01/02/17 17:00 [place] Carbonate 300mg PO BID CULLEN Lorazepam 2 mg 01/01/17 18:27 Ativan IM Q4 PRN Anxiety/Agitation,Unable PO Lorazepam 2 mg 01/01/17 18:27 Ativan PO Q4 PRN Anxiety/Agitation Magnesium Hydroxide 30 ml 01/01/17 18:27 Milk Of Magnesia PO HS PRN Constipation Mirtazapine 15 mg 01/02/17 15:25 Remeron PO HS PRN Insomnia Past Psychiatric History - Past Psychiatric History Previous Treatment History: None Prior Professional Help: has had outpt providers Prior Psychiatric Treatment: has been on zyprexa, prozac and wellbutrin. klonopin prn History of Abuse: denies History of ETOH/Drug Use: history of smoking mj daily. she smokes cigarettes occasionally. has tried other illicit subtances. History of Family Illness: pt was adopted at age 1 and does not know her family history Pertinent Medical Hx (Current Medical&Sleep Prob, Allergies): Allergies Allergy/AdvReac Type Severity Reaction Status Date / Time latex Allergy RASH Verified 06/18/16 13:15 Latex, Natural Rubber Allergy RASH Verified 12/30/16 14:18 FLUoxetine [Prozac] 20 mg PO DAILY 12/30/16 OLANZapine [Zyprexa] 7.5 mg PO QPM 12/30/16 clonazePAM [Klonopin] 0.5 mg PO PRN 12/30/16 buPROPion XL [Wellbutrin XL] 300 mg PO DAILY 01/01/17 pt states she has gerd and has gained weight Review of Systems - Psychiatric Psychiatric: As Per HPI, Abnormal Sleep Pattern, Anhedonia, Anxiety, Depression , Hopelessness, Panic Attacks, Suicidal Ideation (recent attempt) Mental Status Examination - Personal Presentation Personal Presentation: Looks stated age - Affect Affect: Depressed - Motor Activity Motor Activity: Calm - Reliability in Providing Information Reliability in Providing Information: Good - Speech Speech: Organized - Mood Mood: Depressed, Anxious - Formal Thought Process Formal Thought Process: No Impairment - Obsessions/Compulsions Obsessions: Yes Compulsions: Yes Description of Obsession/Compulsion: as per hpi - Cognitive Functions Orientation: Person, Place, Situation, Time Sensorium: Alert Attention/Concentration: Attentive Abstract Thinking: [place] Estimate of Intelligence: Average Judgement: Intact, as evidence by: Insight regarding need for hospitalization ( currently seeking treatment) Memory: Recent intact, as evidence by: Ability to recall events of the day, Remote intact, as evidenced by: Abilit to recall sig. life events - Risk Risk: Suicidal (recent attempt, poor impulse control. now she regrets attempt and wants to live), Diminished functioning - Strength & Assets Inventory Strength & Assets Inventory: Intelligence, Family support, Employment history DSM 5 DX - DSM 5 DSM 5 Diagnosis: bipolar disorder, mixed - Recommended/Plan of Treatment Treatment Recommendations and Plan of Treatment: admit to 3[facility] for safety and observation gather collateral information provide supportive therapy hospitalist consult start lithium 300mg bid and continue prozac. remeron prn for insomnia refer to outpt therapy/psychopharm after he discharge Projected ELOS: 5-7 days Prognosis: fair - Smoking Cessation Smoking Cessation Initiated: No Reason for not providing: declines
--- NOTE | 2017-01-03 13:34 | PCM.PYCHPN ---
Psychiatric Progress Note - Psychiatric Progress Note Patient seen today, length of contact: in treatment team Patient Chief Complaint: i feel ok today Problems Identified/Issues Discussed: pt slept well and tolerated remeron. denies any se with lithium and feels "calm " today. states her anxiety is down. she is in contact with family and attending groups. she is agreeable to returning to outpatient providers. Medication Change: No Medical Record Reviewed: Yes Mental Status Examination - Cognitive Function Orientation: Person, Place, Situation, Time Memory: Intact Attention: WNL Concentration: WNL Association: WNL Fund of Knowledge: [facility] Decription of patient's judgement and insights: fair - Mood Mood: Neutral - Affect Affect: Depressed - Speech Speech: Appropriate - Formal Thought Process Formal Thought Process: No Impairment Psychotic Thoughts and Behaviors: denies a/v hallucinations - Suicidal Ideation Suicidal Ideation: No - Homicidal Ideation Homicidal Ideation: No Goal/Treatment Plan - Goal/Treatment Plan Need for Continued Stay: Remain at risks for inpatient hospitalization, Severe functional impairment Progress Toward Problem(s) and Goals/Treatment Plan: bipolar 2 disorder continue with lithium, prozac and remeron encourage participation in groups check lithium level sunday am and t/c discharge to home - will need close follow up completed peer/peer review Estimated Date of D/C: 01/05/17
[2017-01-03 16:39] VITALS: RESP 18
--- NOTE | 2017-01-04 15:56 | PCM.PYCHPN ---
Psychiatric Progress Note - Psychiatric Progress Note Patient seen today, length of contact: discussed with team Patient Chief Complaint: i feel really good actually Problems Identified/Issues Discussed: pt continues to report feeling less anxious and that her mood is more stable now. she is sleeping well. she attends groups. she is anticipating discharge tomorrow. Medication Change: No Medical Record Reviewed: Yes Mental Status Examination - Cognitive Function Orientation: Person, Place, Situation, Time Memory: Intact Attention: WNL Concentration: WNL Association: WN Fund of Knowledge: [facility] Decription of patient's judgement and insights: fair - Mood Mood: Neutral - Affect Affect: Depressed - Speech Speech: Appropriate - Formal Thought Process Formal Thought Process: No Impairment Psychotic Thoughts and Behaviors: denies a/v hallucinations - Suicidal Ideation Suicidal Ideation: No - Homicidal Ideation Homicidal Ideation: No Goal/Treatment Plan - Goal/Treatment Plan Need for Continued Stay: Remain at risks for inpatient hospitalization, Severe functional impairment Progress Toward Problem(s) and Goals/Treatment Plan: bipolar 2 disorder continue with lithium, prozac and remeron encourage participation in groups check lithium level tomorrow and dc home tomorrow Estimated Date of D/C: 01/05/17
--- NOTE | 2017-01-05 08:27 | CP.PCM.PN ---
Subjective - Date & Time of Evaluation Date of Evaluation: 01/05/17 Time of Evaluation: 08:05 - Subjective Subjective: Pt. seen sitting in lounge with no complaints and no overnight events. Pt. states might be going home today. Objective - Vital Signs/Intake and Output Vital Signs (last 24 hours): Temp Pulse Resp BP Pulse Ox 99.1 F 85 18 135/61 01/04/17 16:47 01/04/17 16:47 01/04/17 16:47 01/04/17 16:47 - Medications Medications: Current Medications Al Hydrox/Mg Hydrox/Simethicone (Maalox Plus 30 Ml) 30 ml PO Q4 PRN PRN Reason: Dyspepsia Diphenhydramine HCl (Benadryl) 50 mg IM Q6 PRN PRN Reason: Extrapyramidal S/S Unable PO Diphenhydramine HCl (Benadryl) 50 mg PO Q6 PRN PRN Reason: Extrapyramidal Symptoms Fluoxetine HCl (Prozac) 20 mg PO DAILY [facility] Last Admin: 01/04/17 09:04 Dose: 20 mg Haloperidol (Haldol) 5 mg PO Q4 PRN PRN Reason: Agitation Haloperidol Lactate (Haldol) 5 mg IM Q4 PRN PRN Reason: Agitation, Unable to Take PO [place] Carbonate ([place] Carbonate 300mg) 300 mg PO BID [facility] Last Admin: 01/04/17 17:15 Dose: 300 mg Lorazepam (Ativan) 2 mg IM Q4 PRN PRN Reason: Anxiety/Agitation,Unable PO Lorazepam (Ativan) 2 mg PO Q4 PRN PRN Reason: Anxiety/Agitation Magnesium Hydroxide (Milk Of Magnesia) 30 ml PO HS PRN PRN Reason: Constipation Mirtazapine (Remeron) 15 mg PO HS PRN PRN Reason: Insomnia Last Admin: 01/04/17 21:41 Dose: 15 mg - Constitutional Appears: Non-toxic, No Acute Distress - Respiratory Exam Respiratory Exam: Clear to Ausculation Bilateral, NORMAL BREATHING PATTERN - Cardiovascular Exam Cardiovascular Exam: REGULAR RHYTHM, +S1, +S2 - GI/Abdominal Exam GI & Abdominal Exam: Soft. absent: Tenderness - Psychiatric Exam Psychiatric exam: Anxious Assessment and Plan - Assessment and Plan (Free Text) Assessment: 26 y.o. female with PMHx of Bipolar depression, anxiety, panic disorder, and cannabis abuse admitted for Suicide attempt via overdose of Acetaminophen and Diphehydramine medically stable for treatment of Depression and Suicide ideation. Pt. medically stable from medicine point of view. Call as needed. Suicide attempt/Depression 1- Recommendation as per Psych
--- NOTE | 2017-01-05 10:10 | PCM.PYCHDC ---
Mental Status Examination - Mental Status Examination Orientation: Person, Place, Situation Mood: Neutral Affect: Broad Speech: Appropriate Attention: WNL Concentration: WNL Association: WNL Fund of Knowledge: WNL Formal Thought Process: No Impairment Description of patient's judgement and insight: fair Psychotic Thoughts and Behaviors: denies a/v hallucinations Suicidal Ideation: No Current Homicidal Ideation?: No Plan: pt denies any suicidal or homicidal thoughts Discharge Summary - Discharge Note Reason for Hospitalization: overdose attempt, mood lability, hopelessness Psychiatric History (includes Medical, Family, Personal Hx): pt has been in outpt treatment. Laboratory Data: Abnormal Lab Results 01/05/17 07:30 [place] 0.3 L Consultations:: List each consultation separately and include: 1. Reason for request. 2. Findings. 3. Follow-up Consultations: seen by hospitalist Summary of Hospital Course include:: 1. Description of specific treatment plan utilized for patients during their course of treatmen. 2. Summarize the time- course for resolution of acute symptoms and/or regressed behaviors. 3. Describe issues identified and worked on during hospitalization. 4. Describe medication utilized. 5. Describe medical problems identified and treated. 6. 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 she is presenting after a suicide attempt with tylenol pm and was hospitalized with elevated tylenol level. she is reporting that she has been very depressed. she felt hopeless and that she was a burden. she took the tylenol, but then quickly told her mother because she was afraid. she reports poor sleep, poor impulse control, anxiety, deep depression, low energy. she denies any psychotic symptoms. she does report she stopped taking her zyprexa about 3 weeks ago because of the weight gain. pt reports having some "ocd" symptoms and has history of picking at her skin and eyebrows as a teenager. she reports she gets panic attacks sometimes. pt reports she likes her current providers and wants help. she reports she is willing to try a medication change here. HOSPITAL COURSE PT was admitted to [facility] and oriented to the unit. pt placed on routine safety protocols. pt started on medications to target her mood swings and poor impulse control. her zyprexa was discontinued as she wax c/w weight gain and had no psychotic symptoms. lithium was started and her prozac was continued. she was started on remeron for insomnia. she slept well and tolerated her medications. her mood remained stable and she stated her anxiety was well controlled. she was denying medication side effects. at the time of discharge she was future oriented and goal directed. she agreed to f/u with her lithium level with her outpt psychiatrist as her current level was 0.3 and drawn prior to steady state achieved. at time of discharge she was denying any suicidal or homicidal thoughts/plans or intent. - Final Diagnosis (DSM 5) Condition upon Discharge: GOOD DSM 5: bipolar 2 disorder Disposition: HOME/ ROUTINE Follow-up Treatment Plan: follow up with aftercare as directed take medications as prescribed do not use alcohol, tobacco or other illicit substances call 911 if any suicidal or homicidal thoughts Prescriptions/Medication Reconciliation: FLUoxetine [Prozac] 20 mg PO DAILY #15 [place] Carbonate [[place] Carbonate 300MG] 300 mg PO BID #30 cap Mirtazapine [Remeron] 15 mg PO HS PRN #15 tab PRN Reason: Insomnia - Smoking Cessation Smoking Cessation Medication prescribed: No Reason for not providing: declines - Antipsychotic Medications Pt discharged on 2 or more routine antipsychotic medications: No
[2017-01-05 11:03] VITALS: BP 119/85; PULSE 95; TEMP 97.6
== END 2017-01-05 13:13 | disposition home or self-care (01) | DRG 885 ==
LOC: H.PSYCH 18:11
PROVIDERS: ADMIT Psychiatry & Neurology Psychiatry; ATTEND Psychiatry & Neurology Psychiatry
PROC: GZHZZZZ Group Psychotherapy (ICD-10-PCS; principal; 2017-01-01)
PROC: GZ56ZZZ Individual Psychotherapy, Supportive (ICD-10-PCS; 2017-01-01)
DX: F31.81 Bipolar II disorder (principal); F41.0 Panic disorder [episodic paroxysmal anxiety]; F17.210 Nicotine dependence, cigarettes, uncomplicated; F12.10 Cannabis abuse, uncomplicated; G47.00 Insomnia, unspecified; Z91.040 Latex allergy status

== ENCOUNTER 2018-09-08 18:12 | Inpatient (IN) | payer BC, MEDICAID, OTHER ==
[2018-09-08 18:12] VITALS: BMI 26.4
--- NOTE | 2018-09-08 18:52 | ED PDOC ---
HPI: Psych/Substance Abuse Time Seen by Provider: 09/08/18 18:24 Chief Complaint (Nursing): Psychiatric Evaluation Chief Complaint (Provider): Psychiatric Evaluation History Per: Patient, Family (mother, sister) History/Exam Limitations: no limitations Onset/Duration Of Symptoms: Days (1x week) Current Symptoms Are (Timing): Still Present Associated Symptoms: Depression, Suicidal Thoughts Additional Complaint(s): 28 year old female with a past medical history of bipolar disorder and ADHD presents to the ED accompanied by her mother and sister for a psychiatric evaluation. Patient states that she has been having "irrational thoughts" this past week, and this morning she contemplated jumping off of a bridge. Patient states that she is compliant with her medications at home. Patient states that she does have a history of suicide attempts, the last attempt was 2x years ago when she tried to overdose on pills. Otherwise: (-) homicidal ideations, (-) A/V hallucinations, (-) physical complaints. LMP: Does not recall PMD: None Past Medical History Reviewed: Historical Data, Nursing Documentation, Vital Signs Vital Signs: Last Vital Signs Temp 97.9 F 09/08/18 18:17 Pulse 104 H 09/08/18 18:17 Resp 17 09/08/18 18:17 BP 142/92 H 09/08/18 18:17 Pulse Ox 100 09/08/18 18:17 HEBERT Report Viewed: Yes - Medical History PMH: Anxiety, Bipolar Disorder, Depression, Hypercholesterolemia, Hypothyroidism Other PMH: ADHD - Surgical History Other surgeries: right eye surgery - Family History Family History: States: No Known Family Hx - Home Medications Home Medications: Ambulatory Orders Medication Instructions Recorded Atorvastatin [Lipitor] 20 mg PO HS 09/26/17 Dextroamphetamine/Amphetamine 10 mg PO DAILY 09/26/17 [Adderall 10 mg Tablet] Levothyroxine [Levoxyl] 0.025 mg PO DAILY 09/26/17 ARIPiprazole [Abilify] 2 mg PO DAILY 09/08/18 Doxepin [Doxepin HCl] 10 mg PO DAILY 09/08/18 - Allergies Allergies/Adverse Reactions: Allergies Allergy/AdvReac Type Severity Reaction Status Date / Time latex Allergy RASH Verified 09/26/17 11:26 Latex, Natural Rubber Allergy RASH Verified 12/30/16 14:18 Review of Systems ROS Statement: Except As Marked, All Systems Reviewed And Found Negative Psych: Positive for: Suicidal ideation (with plan). Negative for: Other (homicidal ideations, hallucinations) Physical Exam - Reviewed Nursing Documentation Reviewed: Yes Vital Signs Reviewed: Yes - Physical Exam Comments: GENERAL APPEARANCE: Patient is awake, alert, oriented x 3, in no acute distress. Service dog at bedside. SKIN: Warm, dry; (-) cyanosis ENMT: Mucous membranes moist. Airway patent: (-) stridor. NECK: Supple, FROM HEART AND CARDIOVASCULAR: (-) irregularity CHEST AND RESPIRATORY: (-) rales, (-) rhonchi, (-) wheezes; breath sounds equal. Respirations even and nonlabored. ABDOMEN: Soft, (-) distention, (-) tenderness, (-) guarding. NEURO AND PSYCH: Mental status as above. Affect: flat. Patient avoids eye contact with examiner. (-) facial asymmetry. Gait: steady. Speech: clear. - Laboratory Results Result Diagrams: 09/09/18 06:29 09/09/18 06:29 Urine POC: Negative - ECG O2 Sat by Pulse Oximetry: 100 (RA) Pulse Ox Interpretation: Normal Medical Decision Making Medical Decision Makin:25 Clinical impression: 28 year old female in the ED for a psychiatric evaluation Initial plan: * crisis evaluation * 1:1 observation * reevaluation 19:10 Crisis at bedside. 2029 Patient resting comfortably with family members at bedside. Pending crisis dispo sition. 2049 Per crisis evaluation, patient to be admitted for bipolar disorder per Dr Orozco. Additional orders placed for medical clearance. 2199 Patient resting comfortably on re-evaluation. No distress noted. 2299 Labs and CXR reviewed and grossly unremarkable. Utox: (+) amphetamines and ca nnabinoids. Patient is medically stable for psychiatric admission. Vitals stable. Arrangements made for admission. Scribe Attestation: Documented by Adela Guerrier, acting as a scribe for Adela Burgess Provider Scribe Attestation: All medical record entries made by the Scribe were at my direction and personally dictated by me. I have reviewed the chart and agree that the record accurately reflects my personal performance of the history, physical exam, medical decision making, and the department course for this patient. I have also personally directed, reviewed, and agree with the discharge instructions and disposition. Disposition - Clinical Impression Clinical Impression: Bipolar disorder - Patient ED Disposition Is Patient to be Admitted: Yes (psych) Counseled Patient/Family Regarding: Studies Performed, Diagnosis - Disposition Disposition Time: 20:50 Condition: FAIR - Pt Status Changed To: Hospital Disposition Of: Inpatient (psych) - Admit Certification Admit to Inpatient:: After my assessment, the patient will require hospitalization for at least two midnights. This is because of the severity of symptoms shown, intensity of services needed, and/or the medical risk in this patient being treated as an outpatient. - POA Present On Arrival: None Results - Lab Results Lab Results: 09/08/18 09/08/18 09/08/18 21:52 21:52 21:52 WBC 7.6 D RBC 4.50 Hgb 13.4 Hct 39.6 MCV 88.0 MCH 29.9 MCHC 33.9 RDW 12.5 Plt Count 261 MPV 8.7 Neut % (Auto) 53.4 Lymph % (Auto) 36.8 [place] % (Auto) 7.5 Eos % (Auto) 1.9 Baso % (Auto) 0.4 Neut # (Auto) 4.1 Lymph # (Auto) 2.8 [place] # (Auto) 0.6 Eos # (Auto) 0.1 Baso # (Auto) 0.0 Sodium Potassium Chloride Carbon Dioxide Anion Gap BUN Creatinine Est GFR ( Amer) Est GFR (Non-Af Amer) Random Glucose Calcium Total Bilirubin AST ALT Alkaline Phosphatase Total Protein Albumin Globulin Albumin/Globulin Ratio Urine Color Yellow Urine Clarity Clear Urine pH 7.0 Ur Specific [place] 1.010 Urine Protein Negative Urine Glucose (UA) Neg Urine Ketones Trace Urine Blood Negative Urine Nitrate Negative Urine Bilirubin Negative Urine Urobilinogen 0.2-1.0 Ur Leukocyte Esterase Neg Urine RBC (Auto) 1 Urine Microscopic WBC 8 H Ur Squamous Epith Cells < 1 Urine Bacteria Rare Urine Opiates Screen Negative Urine Methadone Screen Negative Ur Barbiturates Screen Negative Ur Phencyclidine Scrn Negative Ur Amphetamines Screen Positive H U Benzodiazepines Scrn Negative U Oth Cocaine Metabols Negative U Cannabinoids Screen Positive H Alcohol, Quantitative 09/08/18 21:52 WBC RBC Hgb Hct MCV MCH MCHC RDW Plt Count MPV Neut % (Auto) Lymph % (Auto) Otero % (Auto) Eos % (Auto) Baso % (Auto) Neut # (Auto) Lymph # (Auto) Otero # (Auto) Eos # (Auto) Baso # (Auto) Sodium 140 Potassium 3.5 L Chloride 107 Carbon Dioxide 21 L Anion Gap 16 BUN 8 Creatinine 0.6 L Est GFR ( Amer) > 60 Est GFR (Non-Af Amer) > 60 Random Glucose 80 Calcium 9.3 Total Bilirubin 0.5 AST 24 ALT 24 Alkaline Phosphatase 74 Total Protein 7.7 Albumin 4.5 Globulin 3.2 Albumin/Globulin Ratio 1.4 Urine Color Urine Clarity Urine pH Ur Specific [place] Urine Protein Urine Glucose (UA) Urine Ketones Urine Blood Urine Nitrate Urine Bilirubin Urine Urobilinogen Ur Leukocyte Esterase Urine RBC (Auto) Urine Microscopic WBC Ur Squamous Epith Cells Urine Bacteria Urine Opiates Screen Urine Methadone Screen Ur Barbiturates Screen Ur Phencyclidine Scrn Ur Amphetamines Screen U Benzodiazepines Scrn U Oth Cocaine Metabols U Cannabinoids Screen Alcohol, Quantitative < 10
[2018-09-08 22:24] LABS: BASO % 0.4 % (0.0-2.0); EOS # 0.1 K/uL (0.0-0.7); EOS % 1.9 % (0.0-4.0); HEMOGLOBIN 13.4 g/dL (12.0-16.0); LYMPH # 2.8 K/uL (1.0-4.3); LYMPH % 36.8 % (20.0-40.0); MEAN CORPUSCULAR HEMOGLOBIN 29.9 pg (27.0-31.0); MEAN CORPUSCULAR HGB CONC 33.9 g/dL (33.0-37.0); MEAN PLATELET VOLUME 8.7 fl (7.2-11.7); MONO # 0.6 K/uL (0.0-0.8); MONO % 7.5 % (0.0-10.0); NEUT # 4.1 K/uL (1.8-7.0); NEUT % 53.4 % (50.0-75.0); RBC 4.5 Mil/uL (3.80-5.20); RED CELL DISTRIBUTION WIDTH 12.5 % (11.5-14.5); WHITE BLOOD COUNT 7.6 K/uL (4.8-10.8)
[2018-09-08 22:29] LABS: SQUAMOUS EPITHIAL < 1 /hpf (0-5); URINE BACTERIA RARE (<OCC); URINE BILIRUBIN NEGATIVE (NEGATIVE); URINE BLOOD NEGATIVE (NEGATIVE); URINE CLARITY CLEAR (Clear); URINE COLOR YELLOW (YELLOW); URINE GLUCOSE (UA) NEG (NEGATIVE); URINE LEUKOCYTE ESTERASE NEG Leu/uL (Negative); URINE PROTEIN NEGATIVE (NEGATIVE); URINE UROBILINOGEN 0.2-1.0 mg/dL (0.2-1.0)
[2018-09-08 22:36] LABS: ALB/GLOB RATIO 1.4 (1.0-2.1); ALBUMIN 4.5 g/dL (3.5-5.0); ALT/SGPT 24 U/L (9-52); AST/SGOT 24 U/L (14-36); BLOOD UREA NITROGEN 8 mg/dl (7-17); CALCIUM 9.3 mg/dL (8.4-10.2); GFR NON-AFRICAN AMERICAN > 60
[2018-09-08 22:43] LABS: BARBITURATES, UR NEGATIVE (NEGATIVE); BENZODIAZEPINES, UR NEGATIVE (NEGATIVE); OPIATES, UR NEGATIVE (NEGATIVE); PHENCYCLIDINE, UR NEGATIVE (NEGATIVE)
[2018-09-08] MEDS ORDERED: Alum-Mag Hydrox-Simethicone Susp (30 mL) PO PRN (23:48)
[2018-09-08] MEDS ORDERED: Magnesium Hydroxide Susp 30 ml UD PO PRN (23:48)
[2018-09-08] MEDS ORDERED: DiphenhydrAMINE 50 mg/ml Inj IM PRN (23:48)
--- NOTE | 2018-09-09 00:23 | PCM.BM ---
<Oswaldo Tineo - Last Filed: 09/09/18 00:21> Treatment Plan Problems - Problems identified on initial assessmt Anxiety Date Initiated: 09/09/18 Time Initiated: 00:22 Assessment reference: NA Status: Active Panic Attacks Date Initiated: 09/09/18 Time Initiated: 00:22 Assessment reference: NA Status: Active Altered Thought Process Date Initiated: 09/09/18 Time Initiated: 00:22 Assessment reference: NA Status: Active Ineffective Breathing Pattern Date Initiated: 09/09/18 Time Initiated: 00:22 Assessment reference: NA Status: Active Feeling of Worthlessness Date Initiated: 09/09/18 Time Initiated: 00:22 Assessment reference: NA Status: Active Treatment assets and liabiliti Patient Assests: cooperative, educated, self-reliant, ADL independent, physically healthy, good support system, negotiates basic needs, financial stabiity, cognitively intact Patient Liabilities: relationship conflicts - Milieu Protocol Maintain good personal hygiene: every shift Encourage regular showers, every shift Remind patient to perform daily oral care, every shift Assist patient to perform ADL's Maintain personal safety: daily Educate patient to report safety concerns to staff, daily Monitor environment for contraband/sharps Medication safety: Monitor for expected outcome, potential side effects: daily, Assess barriers to learning: daily, Assess readiness for medication education: daily <Amanda Orozco - Last Filed: 09/09/18 11:57> - Diagnosis (1) Bipolar disorder Status: Acute Interventions: Medication management, Individual and group therapy, Psychoeducation 09/09/18 11:58 <Precious Kevin - Last Filed: 09/11/18 14:04> Family Contact Family involvement: Family/SO is involved Family contact: Patient agrees to contact, Family has been contacted by patient, Telephone contact initiated by staff Family contact name: Marianela (mother) Family contacted how many times per week?: 2 Family contact comment: [phone] - Outside Agency [facility] involvment: Information-sharing Agency contact name: Dr. Groves - psychiatristKenneth Huitron - therapist Agency contact number: [phone] - Goals for Treatment Patient goals for treatment: Pt will improve overall mood. Pt will develop stra tegies for thought distraction when ruminating on the past. Pt will reduce anxiety and improve coping skills. Pt will comply with prescribed medication. Pt will attend clinical and activity groups. Pt will follow unit rules and regulations. Pt will improve sleep. Discharge/Continuing Care - Education Needs Education Needs: Family Medication, Family Diagnosis/Disease Process, Family Coping Skills, Family Community resources, Family Health Practices/Safety, Family Personal Hygiene/Grooming, Family Aftercare Safety Plan, Patient Me dication, Patient Diagnosis/Disease Process, Patient Coping Skills, Patient Community resources, Patient Health Practices/Safety, Patient Personal Hygiene/Grooming, Patient Aftercare Safety Plan - Discharge Discharge Criteria: Tolerates medication w/o severe side effects, Free of Suicidal thoughts, Normal sleep pattern, Ability to care for self, Reduction of target symptoms Discharge to:: Home, With Family - Additional Comments 09/11/18 13:57 Pt seen and discussed in team meeting. Reason for admission reviewed and discussed. Pt reported she was referred to the ED because "i freaked out and it preventive measures." Pt reported that the trigger was a discussion with her boyfriend who did not want to listen to her. Pt reported that her car keys were locked in the car and her boyfriend did not want to listen to her recommendations and suggestions. Pt stated "i get frustrated when people don't listen to me." Pt reported grieving the of her father. Pt reported poor sleep prior to admission. Pt reported using marijuana to help with her sleep pattern and anxiety. Pt reported since admission she has been feeling better. Pt reported "i feel a little more perky." Pt denied active SI and HI. Pt denied any paranoia. Pt denied AVH. Pt's medical and social issues reviewed and discussed. Pt's medications reviewed and psycho-education provided by attending psychiatrist. Tx plan reviewed and discussed. Pt verbalized agreement. Pt informed that she is scheduled for discharge on September 13. Pt advised that she will be provided with a list of in-network therapist at time and appointment for Dr. Groves at [facility]. Pt verbalized agreement. Pt signed consent form for Marianela caal and [facility]. SW to continue to follow case. - Treatment Team Participation Discussed with Family/SO: No Was Patient/Family/SO present at Treatment Team Meeting: Yes
[2018-09-09 06:39] LABS: HEMOGLOBIN 12.9 g/dL (12.0-16.0); MEAN CELL VOLUME 88.5 fl (81.0-99.0); MEAN CORPUSCULAR HEMOGLOBIN 30.2 pg (27.0-31.0); MEAN CORPUSCULAR HGB CONC 34.1 g/dL (33.0-37.0); RBC 4.26 Mil/uL (3.80-5.20); WHITE BLOOD COUNT 6.6 K/uL (4.8-10.8)
[2018-09-09 06:52] LABS: ALB/GLOB RATIO 1.3 (1.0-2.1); ALBUMIN 4.1 g/dL (3.5-5.0); ALT/SGPT 27 U/L (9-52); AST/SGOT 28 U/L (14-36); BLOOD UREA NITROGEN 9 mg/dl (7-17); CALCIUM 9.1 mg/dL (8.4-10.2); GFR NON-AFRICAN AMERICAN > 60; HDL CHOLESTEROL 46 MG/DL (30-70)
[2018-09-09 07:02] LABS: LDL CHOLESTEROL 72 mg/dL (0-129)
[2018-09-09] MEDS: Levothyroxine 25 MCG TAB PO SCH (07:06)
--- NOTE | 2018-09-09 09:36 | RAD ---
Date of service: 09/08/2018 HISTORY: psych admit COMPARISON: 12/30/2016. FINDINGS: LUNGS: The lungs are well inflated and clear. PLEURA: No pleural effusions or pneumothorax. CARDIOVASCULAR: The heart is normal in size. No aortic atherosclerotic calcifications present. OSSEOUS STRUCTURES: Within normal limits for the patient's age. VISUALIZED UPPER ABDOMEN: Normal. OTHER FINDINGS: None. IMPRESSION: No active pulmonary disease.
--- NOTE | 2018-09-09 11:58 | PCM.PSYCH ---
Initial Psychiatric Evaluation - Initial Psychiatric Evaluation Type of Admission: Voluntary Legal Status: Capacity Chief Complaint (in patient's own words): "I was having suicidal thoughts." Patient's Reaction to Hospitalization: HPI: 28 yo female w/ h/o bipolar disorder and ADHD, presented w/ suicidal ideation w/ plan to jump from a bridge. She reports feeling depressed, anxious, overwhelmed and continued grieving for the of her father ( in 01/19). She reports that she is also stressed by her relationship with her boyfriend. She is able to contract for safety at this time, but continues to report feeling depressed and was tearful on interview. She denies current symptoms of aram or hypomania. She does have intermittent difficulty sleeping at night. No AH/VH/paranoia/delusions. PPHx: 1 prior hospitalization in 2017 for suicide attempt; current outpatient tx w/ Dr. Groves at [facility]; Current medications- Abilify 2 mg PO Daily, Adderall 10 mg PO Daily, Doxepin 10 mg PO HS PMHx: Right eye cataract, HLD, Dayanna's Disease ALL: Latex, Rubber SHx: Lives intermittently with mother or boyfriend; works in a [employer] center; smokes marijuana 4-5 times/week, denies etoh; smoke 1/2 ppd FHx: No known family h/o mental illness Current Medications: Active Medications Generic Name Dose Route Start Last Admin Trade Name Freq PRN Reason Stop Dose Admin Acetaminophen 650 mg 09/08/18 23:48 Tylenol 325mg Tab PO Q4 PRN Pain, moderate (4-7) Al Hydrox/Mg Hydrox/Simethicone 30 ml 09/08/18 23:48 Maalox Plus 30 Ml PO Q4 PRN Dyspepsia Atorvastatin Calcium 20 mg 09/09/18 22:00 Lipitor PO HS CULLEN Diphenhydramine HCl 50 mg 09/08/18 23:48 Benadryl IM Q6 PRN Extrapyramidal S/S Unable PO Diphenhydramine HCl 50 mg 09/08/18 23:48 Benadryl PO Q6 PRN Extrapyramidal Symptoms Diphenhydramine HCl 50 mg 09/08/18 23:52 Benadryl PO HS PRN Sleep Haloperidol 5 mg 09/08/18 23:48 Haldol PO Q4 PRN Agitation Haloperidol Lactate 5 mg 09/08/18 23:48 Haldol IM Q4 PRN Agitation, Unable to Take PO Levothyroxine Sodium 25 mcg 09/09/18 06:30 09/09/18 07:06 Synthroid PO 25 mcg DAILY@0630 CULLEN Administration Lorazepam 2 mg 09/08/18 23:48 Ativan IM Q4 PRN Anxiety/Agitation,Unable PO Lorazepam 1 mg 09/08/18 23:48 Ativan PO Q8 PRN Anxiety/Agitation Magnesium Hydroxide 30 ml 09/08/18 23:48 Milk Of Magnesia PO HS PRN Constipation Nicotine 1 patch 09/09/18 09:00 09/09/18 09:10 Nicoderm Cq TD 1 patch DAILY CULLEN Administration Past Psychiatric History - Past Psychiatric History Previous Treatment History: Inpatient Pertinent Medical Hx (Current Medical&Sleep Prob, Allergies): Allergies Allergy/AdvReac Type Severity Reaction Status Date / Time latex Allergy RASH Verified 09/26/17 11:26 Latex, Natural Rubber Allergy RASH Verified 12/30/16 14:18 Atorvastatin [Lipitor] 20 mg PO HS 09/26/17 Dextroamphetamine/Amphetamine [Adderall 10 mg Tablet] 10 mg PO DAILY 09/26/17 Levothyroxine [Levoxyl] 0.025 mg PO DAILY 09/26/17 ARIPiprazole [Abilify] 2 mg PO DAILY 09/08/18 Doxepin [Doxepin HCl] 10 mg PO DAILY 09/08/18 Review of Systems - Psychiatric Psychiatric: As Per HPI, Abnormal Sleep Pattern, Anhedonia, Anxiety, Change in Appetite, Depression, Difficulty Concentrating, Hopelessness, Irritability, Mood Swings, Suicidal Ideation Mental Status Examination - Personal Presentation Personal Presentation: Looks stated age - Affect Affect: Constricted, Depressed - Motor Activity Motor Activity: Calm - Reliability in Providing Information Reliability in Providing Information: Good - Speech Speech: Organized, Coherent - Mood Mood: Depressed, Anxious - Formal Thought Process Formal Thought Process: No Impairment - Hallucinations/Delusions Additional comments: No AH/VH/paranoia/delusions - Obsessions/Compulsions Obsessions: No Compulsions: No - Cognitive Functions Orientation: Person, Place, Situation, Time Sensorium: Alert Attention/Concentration: Attentive Estimate of Intelligence: Average Judgement: Intact, as evidence by: Insight regarding need for hospitalization Memory: Recent intact, as evidence by: Ability to recall events of the day, Remote intact, as evidenced by: Abilit to recall sig. life events, Remote intact, as evidenced by: Ability to recall historical events - Risk Risk: Suicidal, Diminished functioning - Strength & Assets Inventory Strength & Assets Inventory: Family support, Cooperative DSM 5 DX - DSM 5 DSM 5 Diagnosis: Bipolar II Disorder; ADHD - Recommended/Plan of Treatment Treatment Recommendations and Plan of Treatment: Bipolar II Disorder; ADHD -Admit to psychiatry unit -Individual and group therapy -Continue Doxepin -Increase Abilify -Psychoeducation -Nicotine patch -Medicine consult -Disposition planning Projected ELOS: 4-8 days Discharge Plan and Discharge Criteria: Discharge when patient is psychiatrically stable - Smoking Cessation Smoking Cessation Initiated: Yes
[2018-09-09 15:56] VITALS: O2SAT 100
--- NOTE | 2018-09-09 17:18 | CP.PCM.CON ---
History of Present Illness - History of Present Illness History of Present Illness: 28 yo female with history of ADHD admitted to psyche unit because of suicidal ideation Review of Systems - Review of Systems All systems: reviewed and no additional remarkable complaints except (aside from those mentioned above, 12 point system review were negative by me) Past Patient History - Infectious Disease Hx of Infectious Diseases: None - Past Medical History & Family History Past Medical History?: Yes - Past Social History Smoking Status: Light Smoker < 10 Cigarettes Daily Chewing Tobacco Use: No Cigar Use: No Alcohol: Occasional Drugs: Denies - CARDIAC Hx Hypercholesterolemia: Yes - PULMONARY Hx Tuberculosis: No - HEENT Hx HEENT Problems: Yes Hx Cataracts: Yes (RIGHT EYE) Other/Comment: 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 - ENDOCRINE/METABOLIC Hx Hypothyroidism: Yes - PSYCHIATRIC Hx Anxiety: Yes Hx Bipolar Disorder: Yes Hx Depression: Yes - SURGICAL HISTORY Hx Surgeries: Yes Hx Eye Surgery: Yes (REPAIR OF TORN RETINA-RIGHT EYE) Other/Comment: Sinus surgery 2013-FOR DEVIATED SEPTUM - ANESTHESIA Hx Anesthesia: Yes ("RESTLESS LEG DURING ANESTHESIA") Hx Anesthesia Reactions: No Hx Malignant Hyperthermia: No Meds Allergies/Adverse Reactions: Allergies Allergy/AdvReac Type Severity Reaction Status Date / Time latex Allergy RASH Verified 09/26/17 11:26 Latex, Natural Rubber Allergy RASH Verified 12/30/16 14:18 - Medications Medications: Current Medications Acetaminophen (Tylenol 325mg Tab) 650 mg PO Q4 PRN PRN Reason: Pain, moderate (4-7) Al Hydrox/Mg Hydrox/Simethicone (Maalox Plus 30 Ml) 30 ml PO Q4 PRN PRN Reason: Dyspepsia Aripiprazole (Abilify) 5 mg PO DAILY [facility] Last Admin: 09/09/18 14:05 Dose: 5 mg Atorvastatin Calcium (Lipitor) 20 mg PO HS CULLEN Diphenhydramine HCl (Benadryl) 50 mg IM Q6 PRN PRN Reason: Extrapyramidal S/S Unable PO Diphenhydramine HCl (Benadryl) 50 mg PO Q6 PRN PRN Reason: Extrapyramidal Symptoms Diphenhydramine HCl (Benadryl) 50 mg PO HS PRN PRN Reason: Sleep Doxepin HCl (Sinequan) 10 mg PO HS CULLEN Haloperidol (Haldol) 5 mg PO Q4 PRN PRN Reason: Agitation Haloperidol Lactate (Haldol) 5 mg IM Q4 PRN PRN Reason: Agitation, Unable to Take PO Levothyroxine Sodium (Synthroid) 25 mcg PO DAILY@0630 [facility] Last Admin: 09/09/18 07:06 Dose: 25 mcg Lorazepam (Ativan) 2 mg IM Q4 PRN PRN Reason: Anxiety/Agitation,Unable PO Lorazepam (Ativan) 1 mg PO Q8 PRN PRN Reason: Anxiety/Agitation Magnesium Hydroxide (Milk Of Magnesia) 30 ml PO HS PRN PRN Reason: Constipation Nicotine (Nicoderm Cq) 1 patch TD DAILY [facility] Last Admin: 09/09/18 09:10 Dose: 1 patch Physical Exam - Constitutional Appears: No Acute Distress - Head Exam Head Exam: ATRAUMATIC - Eye Exam Eye Exam: absent: Scleral icterus - ENT Exam ENT Exam: Mucous Membranes Moist - Neck Exam Neck exam: Negative for: Meningismus - Respiratory Exam Respiratory Exam: absent: Rales, Rhonchi, Wheezes, Respiratory Distress - Cardiovascular Exam Cardiovascular Exam: REGULAR RHYTHM, +S1, +S2 - GI/Abdominal Exam GI & Abdominal Exam: Soft. absent: Tenderness - Rectal Exam Rectal Exam: Deferred - Neurological Exam Neurological exam: Alert, Oriented x3 - Psychiatric Exam Psychiatric exam: Normal Affect - Skin Skin Exam: Dry, Intact Results - Vital Signs Recent Vital Signs: Last Vital Signs Temp 98 F 09/09/18 16:09 Pulse 88 09/09/18 16:09 Resp 18 09/09/18 16:09 BP 102/67 09/09/18 16:09 Pulse Ox 100 09/09/18 16:00 - Labs Result Diagrams: 09/09/18 06:29 09/09/18 06:29 Labs: Laboratory Results - last 24 hr 09/08/18 09/08/18 09/08/18 21:52 21:52 21:52 WBC 7.6 D RBC 4.50 Hgb 13.4 Hct 39.6 MCV 88.0 MCH 29.9 MCHC 33.9 RDW 12.5 Plt Count 261 MPV 8.7 Neut % (Auto) 53.4 Lymph % (Auto) 36.8 Grainger % (Auto) 7.5 Eos % (Auto) 1.9 Baso % (Auto) 0.4 Neut # (Auto) 4.1 Lymph # (Auto) 2.8 Grainger # (Auto) 0.6 Eos # (Auto) 0.1 Baso # (Auto) 0.0 Sodium 140 Potassium 3.5 L Chloride 107 Carbon Dioxide 21 L Anion Gap 16 BUN 8 Creatinine 0.6 L Est GFR ( Amer) > 60 Est GFR (Non-Af Amer) > 60 Random Glucose 80 Hemoglobin A1c Calcium 9.3 Total Bilirubin 0.5 AST 24 ALT 24 Alkaline Phosphatase 74 Total Protein 7.7 Albumin 4.5 Globulin 3.2 Albumin/Globulin Ratio 1.4 Triglycerides Cholesterol LDL Cholesterol Direct HDL Cholesterol Thyroxine (T4) TSH 3rd Generation Urine Color Urine Clarity Urine pH Ur Specific [place] Urine Protein Urine Glucose (UA) Urine Ketones Urine Blood Urine Nitrate Urine Bilirubin Urine Urobilinogen Ur Leukocyte Esterase Urine RBC (Auto) Urine Microscopic WBC Ur Squamous Epith Cells Urine Bacteria Urine Opiates Screen Negative Urine Methadone Screen Negative Ur Barbiturates Screen Negative Ur Phencyclidine Scrn Negative Ur Amphetamines Screen Positive H U Benzodiazepines Scrn Negative U Oth Cocaine Metabols Negative U Cannabinoids Screen Positive H Alcohol, Quantitative < 10 RPR 09/08/18 09/09/18 09/09/18 21:52 06:29 06:29 WBC RBC Hgb Hct MCV MCH MCHC RDW Plt Count MPV Neut % (Auto) Lymph % (Auto) [place] % (Auto) Eos % (Auto) Baso % (Auto) Neut # (Auto) Lymph # (Auto) Grainger # (Auto) Eos # (Auto) Baso # (Auto) Sodium 139 Potassium 3.8 Chloride 107 Carbon Dioxide 21 L Anion Gap 15 BUN 9 Creatinine 0.6 L Est GFR ( Amer) > 60 Est GFR (Non-Af Amer) > 60 Random Glucose 84 Hemoglobin A1c 5.0 Calcium 9.1 Total Bilirubin 0.6 AST 28 ALT 27 Alkaline Phosphatase 69 Total Protein 7.2 Albumin 4.1 Globulin 3.1 Albumin/Globulin Ratio 1.3 Triglycerides 75 D Cholesterol 135 LDL Cholesterol Direct 72 HDL Cholesterol 46 Thyroxine (T4) 10.8 TSH 3rd Generation 2.38 Urine Color Yellow Urine Clarity Clear Urine pH 7.0 Ur Specific [place] 1.010 Urine Protein Negative Urine Glucose (UA) Neg Urine Ketones Trace Urine Blood Negative Urine Nitrate Negative Urine Bilirubin Negative Urine Urobilinogen 0.2-1.0 Ur Leukocyte Esterase Neg Urine RBC (Auto) 1 Urine Microscopic WBC 8 H Ur Squamous Epith Cells < 1 Urine Bacteria Rare Urine Opiates Screen Urine Methadone Screen Ur Barbiturates Screen Ur Phencyclidine Scrn Ur Amphetamines Screen U Benzodiazepines Scrn U Oth Cocaine Metabols U Cannabinoids Screen Alcohol, Quantitative RPR 09/09/18 09/09/18 06:29 06:29 WBC 6.6 RBC 4.26 Hgb 12.9 Hct 37.7 MCV 88.5 MCH 30.2 MCHC 34.1 RDW 13.0 Plt Count 261 MPV Neut % (Auto) Lymph % (Auto) [place] % (Auto) Eos % (Auto) Baso % (Auto) Neut # (Auto) Lymph # (Auto) Grainger # (Auto) Eos # (Auto) Baso # (Auto) Sodium Potassium Chloride Carbon Dioxide Anion Gap BUN Creatinine Est GFR ( Amer) Est GFR (Non-Af Amer) Random Glucose Hemoglobin A1c Calcium Total Bilirubin AST ALT Alkaline Phosphatase Total Protein Albumin Globulin Albumin/Globulin Ratio Triglycerides Cholesterol LDL Cholesterol Direct HDL Cholesterol Thyroxine (T4) TSH 3rd Generation Urine Color Urine Clarity Urine pH Ur Specific [place] Urine Protein Urine Glucose (UA) Urine Ketones Urine Blood Urine Nitrate Urine Bilirubin Urine Urobilinogen Ur Leukocyte Esterase Urine RBC (Auto) Urine Microscopic WBC Ur Squamous Epith Cells Urine Bacteria Urine Opiates Screen Urine Methadone Screen Ur Barbiturates Screen Ur Phencyclidine Scrn Ur Amphetamines Screen U Benzodiazepines Scrn U Oth Cocaine Metabols U Cannabinoids Screen Alcohol, Quantitative RPR Nonreactive Assessment & Plan (1) Suicidal ideation Status: Acute Comment: psyche is managing
[2018-09-10] MEDS: Levothyroxine 25 MCG TAB PO SCH (06:35)
--- NOTE | 2018-09-10 09:58 | PCM.PYCHPN ---
Psychiatric Progress Note - Psychiatric Progress Note Patient seen today, length of contact: Pt evaluated, case discussed w/ team, chart reviewed Patient Chief Complaint: "I was having suicidal thoughts." Problems Identified/Issues Discussed: Patient continues to report feeling depressed and anxious with sleep disturbances. She denies acute suicidal ideation/plan/intent. We discussed coping strategies to deal with her depressed mood, negative thoughts and past s uicidal ideation. No adverse effect to medications. Medication Change: No Medical Record Reviewed: Yes Consults ordered or reviewed: Medicine consult Mental Status Examination - Cognitive Function Orientation: Person, Place, Situation, Time Memory: Intact Attention: WNL Concentration: WNL Association: [facility] Fund of Knowledge: [facility] Decription of patient's judgement and insights: Fair I/J - Mood Mood: Depressed, Anxious - Affect Affect: Constricted, Depressed - Speech Speech: Appropriate - Formal Thought Process Formal Thought Process: No Impairment - Suicidal Ideation Suicidal Ideation: No - Homicidal Ideation Homicidal Ideation: No Goal/Treatment Plan - Goal/Treatment Plan Need for Continued Stay: Remain at risks for inpatient hospitalization, Severe depression anxiety Progress Toward Problem(s) and Goals/Treatment Plan: Bipolar II Disorder; ADHD -Individual and group therapy -Continue Doxepin PRN insomnia -Continue Abilify -Psychoeducation -Nicotine patch -Medicine consult -Disposition planning
[2018-09-11] MEDS: Levothyroxine 25 MCG TAB PO SCH (05:48)
--- NOTE | 2018-09-11 10:34 | PCM.PYCHPN ---
Psychiatric Progress Note - Psychiatric Progress Note Patient seen today, length of contact: Pt evaluated, case discussed w/ team, chart reviewed Patient Chief Complaint: "I was having suicidal thoughts." Problems Identified/Issues Discussed: Patient met with her family yesterday and was very upset and tearful during her family meeting. She reports that she continues to feel depressed over the of her father and how her mother is handling his belongings. She reports that she continues to have difficulty sleeping at night. She denies acute suicidal ideation/plan/intent. No adverse effect to medications. Medication Change: No Medical Record Reviewed: Yes Consults ordered or reviewed: Medicine consult Mental Status Examination - Cognitive Function Orientation: Person, Place, Situation, Time Memory: Intact Attention: WNL Concentration: WNL Association: WNL Fund of Knowledge: [facility] Decription of patient's judgement and insights: Fair I/J - Mood Mood: Depressed, Anxious - Affect Affect: Constricted, Depressed - Speech Speech: Appropriate - Formal Thought Process Formal Thought Process: No Impairment Psychotic Thoughts and Behaviors: No AH/VH/paranoia/delusions - Suicidal Ideation Suicidal Ideation: No - Homicidal Ideation Homicidal Ideation: No Goal/Treatment Plan - Goal/Treatment Plan Need for Continued Stay: Remain at risks for inpatient hospitalization, Severe depression anxiety Progress Toward Problem(s) and Goals/Treatment Plan: Bipolar II Disorder; ADHD -Individual and group therapy -Continue Abilify -Psychoeducation -Nicotine patch -Medicine consult -Disposition planning Estimated Date of D/C: 09/13/18
[2018-09-12] MEDS: Levothyroxine 25 MCG TAB PO SCH (05:43)
[2018-09-12 05:58] VITALS: RESP 18
--- NOTE | 2018-09-12 09:51 | PCM.PYCHPN ---
Psychiatric Progress Note - Psychiatric Progress Note Patient seen today, length of contact: Pt evaluated, case discussed w/ team, chart reviewed Patient Chief Complaint: Depression/anxiety Problems Identified/Issues Discussed: Patient reports that her mood is improving. She feels less depressed, less anxious and less irritable. We discussed coping strategies to deal with her family related stress. She reports improved sleep at night. She denies acute suicidal ideation/plan/intent. No adverse effect to medications. Medication Change: No Medical Record Reviewed: Yes Consults ordered or reviewed: Medicine consult Mental Status Examination - Cognitive Function Orientation: Person, Place, Situation, Time Memory: Intact Attention: WNL Concentration: WNL Association: [facility] Fund of Knowledge: [facility] Decription of patient's judgement and insights: Fair I/J - Mood Mood: Depressed, Anxious - Affect Affect: Constricted - Speech Speech: Appropriate - Formal Thought Process Formal Thought Process: No Impairment Psychotic Thoughts and Behaviors: No AH/VH/paranoia/delusions - Suicidal Ideation Suicidal Ideation: No - Homicidal Ideation Homicidal Ideation: No Goal/Treatment Plan - Goal/Treatment Plan Need for Continued Stay: Remain at risks for inpatient hospitalization, Severe depression anxiety Progress Toward Problem(s) and Goals/Treatment Plan: Bipolar II Disorder; ADHD -Individual and group therapy -Continue Abilify -Continue Adderall -Psychoeducation -Nicotine patch -Medicine consult -Disposition planning- likely discharge to home tomorrow if patient continues to improve clinically Estimated Date of D/C: 09/13/18
[2018-09-13 05:58] VITALS: BP 103/69; PULSE 67; TEMP 97.1
[2018-09-13] MEDS: Levothyroxine 25 MCG TAB PO SCH (06:03)
--- NOTE | 2018-09-13 08:10 | PCM.PYCHDC ---
Mental Status Examination - Mental Status Examination Orientation: Person, Place, Situation, Time Memory: Intact Mood: Neutral Affect: Broad Speech: Appropriate Attention: WNL Concentration: WNL Association: WNL Fund of Knowledge: WNL Formal Thought Process: No Impairment Description of patient's judgement and insight: Fair I/J Psychotic Thoughts and Behaviors: No AH/VH/paranoia/delusions Suicidal Ideation: No Current Homicidal Ideation?: No Discharge Summary - Discharge Note Reason for Hospitalization: HPI: 28 yo female w/ h/o bipolar disorder and ADHD, presented w/ suicidal ideation w/ plan to jump from a bridge. She reports feeling depressed, anxious, overwhelmed and continued grieving for the of her father ( in 01/19). She reports that she is also stressed by her relationship with her boyfriend. She is able to contract for safety at this time, but continues to report feeling depressed and was tearful on interview. She denies current symptoms of aram or hypomania. She does have intermittent difficulty sleeping at night. No AH/VH/paranoia/delusions. PPHx: 1 prior hospitalization in 2017 for suicide attempt; current outpatient tx w/ Dr. Groves at [facility]; Current medications- Abilify 2 mg PO Daily, Adderall 10 mg PO Daily, Doxepin 10 mg PO HS PMHx: Right eye cataract, HLD, Dayanna's Disease ALL: Latex, Rubber SHx: Lives intermittently with mother or boyfriend; works in a [employer]; smokes marijuana 4-5 times/week, denies etoh; smoke 1/2 ppd FHx: No known family h/o mental illness Consultations:: List each consultation separately and include: 1. Reason for request. 2. Findings. 3. Follow-up Consultations: Medicine consult Summary of Hospital Course include:: 1. Description of specific treatment plan utilized for patients during their course of treatmen. 2. Summarize the time- course for resolution of acute symptoms and/or regressed behaviors. 3. Describe issues identified and worked on during hospitalization. 4. Describe medication utilized. 5. Describe medical problems identified and treated. 6. Reassessment of suicide risk Summary of Hospital Course: Patient was admitted to the psychiatry unit. Individual and group therapy were provided. Psychoeducation provided on the importance of using coping strategies and the importance of compliance with treatment and medications. She was stabilized on Abilify 5 mg PO Daily and continued on Adderall. She denies acute depression/anxiety/AH/VH/paranoia/delusions. She is psychiatrically stable for discharge at this time. Patient informed to call 911, call her doctor or go to the nearest ER if she has suicidal thoughts in the future. - Diagnosis (1) Bipolar disorder Current Visit: Yes Status: Acute - Final Diagnosis (DSM 5) Condition upon Discharge: STABLE DSM 5: Bipolar II Disorder; r/o Borderline Personality Disorder; ADHD Disposition: HOME/ ROUTINE Follow-up Treatment Plan: -Discharge with outpatient psychiatric treatment Prescriptions/Medication Reconciliation: ARIPiprazole [Abilify] 5 mg PO DAILY #30 tab Dextroamphetamine/Amphetamine [Adderall 10 mg Tablet] 10 mg PO DAILY #30 tablet Nicotine 14 mg/24 hr [Nicoderm CQ] 1 patch TD DAILY #30 patch - Smoking Cessation Smoking Cessation Medication prescribed: Yes - Antipsychotic Medications Pt discharged on 2 or more routine antipsychotic medications: No
[2018-09-13] MEDS ORDERED: AMPHETAMINE SALT COMBINATION 5 MG TAB PO SCH (09:00)
== END 2018-09-13 11:23 | disposition home or self-care (01) | DRG 885 ==
LOC: H.ER 18:12 → H.ERHOLD 23:01 → H.STEP 23:46
PROVIDERS: ADMIT Psychiatry & Neurology Psychiatry; ATTEND Psychiatry & Neurology Psychiatry
PROC: GZHZZZZ Group Psychotherapy (ICD-10-PCS; principal; 2018-09-08)
DX: F31.81 Bipolar II disorder (principal); R45.851 Suicidal ideations; F90.9 Attention-deficit hyperactivity disorder, unspecified type; E78.00 Pure hypercholesterolemia, unspecified; E78.5 Hyperlipidemia, unspecified; F17.210 Nicotine dependence, cigarettes, uncomplicated; G47.00 Insomnia, unspecified; F12.90 Cannabis use, unspecified, uncomplicated; E06.3 Autoimmune thyroiditis; Z91.040 Latex allergy status; Z79.890 Hormone replacement therapy